=== PATIENT | female | born 1935 | race Caucasian/White ===

== ENCOUNTER → 2019-08-04 10:05 | Outpatient (BNVA) | payer MEDICARE, OTHER, SELFPAY | PROVIDERS: Family Provider Internal Medicine; PCP Internal Medicine; Referring Provider Internal Medicine Rheumatology; Visit Provider Internal Medicine Rheumatology | DX: M85.80 Other specified disorders of bone density and structure, unspecified site (principal); Z79.899 Other long term (current) drug therapy | CPT/HCPCS: 36415; 80053; 85025 ==

== ENCOUNTER → 2019-08-04 10:51 | Outpatient (BNVA) | payer MEDICARE, OTHER, SELFPAY | PROVIDERS: Family Provider Internal Medicine; PCP Internal Medicine; Referring Provider Internal Medicine Rheumatology | DX: M85.80 Other specified disorders of bone density and structure, unspecified site (principal); Z79.899 Other long term (current) drug therapy | CPT/HCPCS: 85025 ==

== ENCOUNTER → 2019-12-18 14:51 | Outpatient (BNVA) | payer MEDICARE, OTHER, SELFPAY | PROVIDERS: Family Provider Internal Medicine; PCP Internal Medicine; Visit Provider Internal Medicine | DX: M94.8X9 Other specified disorders of cartilage, unspecified sites (principal); M81.0 Age-related osteoporosis without current pathological fracture | CPT/HCPCS: 99213 ==

== ENCOUNTER 2020-01-08 13:50 | Outpatient (CLI) | payer MEDICARE, OTHER, SELFPAY ==
--- NOTE | 2020-01-08 14:45 | XR_ITS ---
WS: [id number] SCREENING DEXA SCAN [employer] CLINICAL INFORMATION: osteoporosis COMPARISON: FINDINGS: Left femoral neck bone mineral density measures 0.879 g/cm2. This corresponds to a T score of -1.0 an d Z score of 0.7. Right femoral neck bone mineral density measures 0.850 g/cm2. This corresponds to a T score -1.3of an d Z score of 0.5. Mean femoral neck bone mineral density measures 0.864 g/cm2. This corresponds to a T score of -1.1 an d Z score of 0.6. Left forearm bone mineral density 0.65 with a T score of -2.5 and Z score of 0.6 XR/XR DEXA axial skeleton* [id number] IMPRESSION: Osteoporosis in the left forearm. Osteopenia in the femoral necks. Patient's FRAX calculated 10 year probability for major osteoporotic fracture i s 18.8 % and osteoporotic hip fracture is 4.5%.
--- NOTE | 2020-01-08 15:15 | XRR_ITS ---
PROCEDURE INFORMATION: Exam: XR Chest, 2 Views Exam date and time: 01/08/2020 1:55 PM Age: 84 years old Clinical indication: Shortness of breath; Additional info: SOB TECHNIQUE: Imaging protocol: XR of the chest Views: 2 views. COMPARISON: CR Chest 1 [place] [id number] 01/25/2013 7:01 PM FINDINGS: Lungs: Unremarkable. No consolidation. Pleural space: Unremarkable. No pleural effusion. No pneumothorax. Heart/Mediastinum: Unremarkable. No cardiomegaly. Bones/joints: Dorsal spine osteopenia. Mid dorsal compression fracture is seen. XR/XR chest 2V* [id number] IMPRESSION: No acute findings. Dorsal spine osteopenia and compression fracture.
== END 2020-01-08 13:51 | disposition home or self-care (01) ==
LOC: RADWPI 13:54
PROVIDERS: Family Provider Internal Medicine; PCP Internal Medicine; Visit Provider Internal Medicine
DX: M81.0 Age-related osteoporosis without current pathological fracture (principal); R06.02 Shortness of breath; M85.88 Other specified disorders of bone density and structure, other site; M48.50XA Collapsed vertebra, not elsewhere classified, site unspecified, initial encounter for fracture
CPT/HCPCS: 71046; 77080

== ENCOUNTER → 2020-03-02 13:10 | Outpatient (BNVA) | payer MEDICARE, OTHER, SELFPAY | PROVIDERS: Family Provider Internal Medicine; PCP Internal Medicine; Visit Provider Internal Medicine | DX: M94.8X9 Other specified disorders of cartilage, unspecified sites (principal); M06.9 Rheumatoid arthritis, unspecified; M81.0 Age-related osteoporosis without current pathological fracture | CPT/HCPCS: 36415; 80053; 85025; 85651; 99213 ==

== ENCOUNTER → 2020-07-19 14:01 | Outpatient (BNVA) | payer MEDICARE, OTHER, SELFPAY | PROVIDERS: PCP Family Medicine; Visit Provider Internal Medicine | DX: M94.1 Relapsing polychondritis (principal); Z79.899 Other long term (current) drug therapy; Z11.1 Encounter for screening for respiratory tuberculosis; Z11.59 Encounter for screening for other viral diseases | CPT/HCPCS: 36415; 80053; 85025; 85651; 86140; 86480; 86704; 86803; 87340; 99214 ==

== ENCOUNTER 2020-08-05 09:40 | Outpatient (CLI) | payer MEDICARE, SELFPAY ==
--- NOTE | 2020-08-05 10:15 | USCV_ITS ---
Vandana Christie Age: 85 Gender: F : 1935 Exam Date: 08/05/2020 10:04 Ordering Phys: Sher Cooper MD Technologist: Nasrin Mazariegos [place]am Location: [facility] [place] [facility] [place] Indication: RELAPSING POLYCHONDRITIS BP: 141 / 62 HR: 64 Rhythm: Sinus Technical Quality: Adequate MEASUREMENTS (Male / Female) Normal Values 2D ECHO LV Diastolic Diameter PLAX 3.3 cm 4.2 - 5.9 / 3.9 - 5.3 cm LV Systolic Diameter PLAX 2.9 cm LV Chamber Size 2.9 cm IVS Diastolic Thickness 1.2 cm 0.6 - 1.0 / 0.6 - 0.9 cm IVS Systolic Thickness 1.5 cm LVPW Diastolic Thickness 2.3 cm 0.6 - 1.0 / 0.6 - 0.9 cm LVPW Systolic Thickness 2.7 cm RV Chamber Size 3.7 cm LVOT Diameter 2.0 cm LV Ejection Fraction 2D Teich 26.2 % LV Ejection Fraction MOD 2C 55.6 % LV Ejection Fraction 2C AL 57.7 % LA Diameter 3.5 cm LA Width 3.6 cm LA Height 4.5 cm RA Width 3.4 cm RA Height 4.0 cm Aorta at Sinotubular Diameter 2.7 cm M-MODE LV Diastolic Diameter MM 4.8 cm 4.2 - 5.9 / 3.9 - 5.3 cm LV Systolic Diameter MM 3.5 cm LV Ejection Fraction MM Teich 53.6 % IVS Diastolic Thickness MM 1.3 cm 0.6 - 1.0 / 0.6 - 0.9 cm IVS Systolic Thickness MM 1.6 cm LVPW Diastolic Thickness MM 1.2 cm 0.6 - 1.0 / 0.6 - 0.9 cm LVPW Systolic Thickness MM 1.4 cm Aortic Annulus Diameter 3.0 cm LA Ao Ratio MM 1.3 MV E Point Septal Separation 1.1 cm DOPPLER AV Peak Velocity 179.0 cm/s LVOT Peak Velocity 122.0 cm/s AV Area Cont Eq vti 2.6 cm squared AV Area Cont Eq pk 2.2 cm squared MV Area PHT 3.6 cm squared Mitral E to A Ratio 0.7 MV E' Velocity 34.0 cm/s Mitral E to MV E' Ratio 5.7 Mitral E to LV E' Lateral Ratio 6.5 Mitral E to LV E' Septal Ratio 5.0 TR Peak Velocity 267.0 cm/s TR Peak Gradient 28.5 mmHg TV Peak E Velocity 52.0 cm/s Right Atrial Pressure 3.0 mmHg Pulmonary Artery Systolic Pressu 31.5 mmHg PV Peak Velocity 70.0 cm/s RV Acceleration Time 0.1 s RV Ejection Time 0.4 s RV AcT/ET 0.4 FINDINGS Left Ventricle Normal left ventricular size. LV systolic function with EF of 55 to 60%. No regional wall motion abnormalities are seen. Grade 1 diastolic dysfunction is seen. Right Ventricle The right ventricle is normal in size and function. Right Atrium The right atrium is normal in size. Left Atrium The left atrium is normal in size. Mitral Valve Mild mitral annular calcification is seen. No significant mitral stenosis. There is mild mitral regurgitation. Aortic Valve Aortic valve is thickened. No significant aortic stenosis is seen.. There is no aortic regurgitation. Tricuspid Valve Structurally normal tricuspid valve without significant stenosis. There is trace tricuspid regurgitation. RVSP is 35 to 40 mmHg. This is consistent with mild pulmonary hypertension. Pulmonic Valve Grossly normal. Pericardium Normal pericardium without effusion. Aorta Normal ascending aorta dimension. CONCLUSIONS LV systolic function is normal with EF of 55 to 60%. Grade 1 diastolic dysfunction is seen. Mild pulmonary hypertension is present. Mild mitral regurgitation and trace tricuspid regurgitation is seen. Prior echocardiogram from 05/21/2014, no significant changes are seen. Edil De La Cruz MD (Electronically Signed) Final Date: 13 August 2020 12:14 S
== END 2020-08-05 09:41 | disposition home or self-care (01) ==
LOC: US 09:40
PROVIDERS: PCP Family Medicine; Visit Provider Internal Medicine
DX: M94.1 Relapsing polychondritis (principal); I27.20 Pulmonary hypertension, unspecified; I08.1 Rheumatic disorders of both mitral and tricuspid valves
CPT/HCPCS: 93306

== ENCOUNTER → 2021-01-06 09:55 | Outpatient (BNVA) | payer MEDICARE, SELFPAY | PROVIDERS: PCP Internal Medicine; Visit Provider Internal Medicine | DX: M94.1 Relapsing polychondritis (principal); Z79.899 Other long term (current) drug therapy | CPT/HCPCS: 36415; 81001; 82728; 83540; 85651; 86140; 86160; 99214 ==

== ENCOUNTER → 2021-03-10 10:12 | Outpatient (BNVA) | payer MEDICARE, SELFPAY | PROVIDERS: PCP Internal Medicine; Visit Provider Internal Medicine | DX: M94.1 Relapsing polychondritis (principal); Z79.899 Other long term (current) drug therapy | CPT/HCPCS: 99213; 99214 ==

== ENCOUNTER → 2021-06-14 10:17 | Outpatient (BNVA) | payer MEDICARE, SELFPAY | PROVIDERS: PCP Internal Medicine; Visit Provider Internal Medicine | DX: M94.1 Relapsing polychondritis (principal); Z79.899 Other long term (current) drug therapy | CPT/HCPCS: 99213 ==

== ENCOUNTER → 2021-09-23 09:01 | Outpatient (BNVA) | payer MEDICARE, SELFPAY | PROVIDERS: PCP Internal Medicine; Visit Provider Internal Medicine | DX: M94.1 Relapsing polychondritis (principal); Z79.899 Other long term (current) drug therapy | CPT/HCPCS: 99213; 99214 ==

== ENCOUNTER → 2021-12-27 14:25 | Outpatient (BNVA) | payer MEDICARE, SELFPAY | PROVIDERS: PCP Internal Medicine; Visit Provider Internal Medicine | DX: M94.1 Relapsing polychondritis (principal); M81.0 Age-related osteoporosis without current pathological fracture; M06.9 Rheumatoid arthritis, unspecified | CPT/HCPCS: 99213; 99214 ==

== ENCOUNTER → 2022-03-22 08:57 | Outpatient (BNVA) | payer MEDICARE, SELFPAY | PROVIDERS: PCP Internal Medicine; Visit Provider Internal Medicine | DX: M94.1 Relapsing polychondritis (principal); M81.0 Age-related osteoporosis without current pathological fracture; M06.9 Rheumatoid arthritis, unspecified; Z79.899 Other long term (current) drug therapy | CPT/HCPCS: 99213; 99214 ==

== ENCOUNTER 2022-03-31 14:31 | Outpatient (CLI) | payer MEDICARE, SELFPAY ==
--- NOTE | 2022-03-31 14:30 | XR_ITS ---
WS: [id number] DEXA (DUAL ENERGY X-RAY ABSORPTIOMETRY) Bone mineral density was performed using a Symwave machine. HISTORY: M81.0 - Age-related osteoporosis without current fracture. COMPARISON: 01/08/2020 Left forearm BMD: 0.605 g/cm2. T score: -3.1 Z score: 0.2 Left: 0.871 g/cm2. T score: -1.1 Z score: 0.8 Right: 0.828 g/cm2. T score: -1.4 Z score: 0.5 10 year probability of a major osteoporotic fracture is 17.4%. Compared to the prior study from 01/08/2020. LEFT forearm bone mineral density has decreased by 7.8%. Bilateral hips bone mineral density has decreased by 1.6%. XR/XR DEXA axial skeleton* [id number] IMPRESSION: OSTEOPOROSIS based upon the WHO classification for females. Significant decrease in bone mineral density within the forearm since the prior study. No significant change within the hips.
== END 2022-03-31 14:32 | disposition home or self-care (01) ==
PROVIDERS: PCP Internal Medicine; Visit Provider Internal Medicine
DX: M81.0 Age-related osteoporosis without current pathological fracture (principal); M94.1 Relapsing polychondritis
CPT/HCPCS: 77080

== ENCOUNTER → 2022-11-08 10:54 | Outpatient (BNVA) | payer MEDICARE, SELFPAY | PROVIDERS: PCP Internal Medicine; Visit Provider Internal Medicine | DX: M81.0 Age-related osteoporosis without current pathological fracture (principal); M06.9 Rheumatoid arthritis, unspecified; M94.1 Relapsing polychondritis | CPT/HCPCS: 99214 ==

== ENCOUNTER 2023-01-15 07:58 | Oncology outpatient (recurring) (ONCR) | payer MEDICARE, SELFPAY ==
[2023-01-15 08:30] VITALS: BP 137/84; PULSE 88; RESP 16; TEMP 35.8; O2SAT 94
[2023-01-15 09:17] LABS: Albumin Level 3.9 g/dL (3.5-5.2); Calcium 9.4 mg/dL (8.5-10.5)
[2023-01-15] MEDS: denosumab 60 mg SDV SUBCUT (09:33)
[2023-01-19 12:55] LABS: Vit D 1,25 (Oh)2, Total 40 pg/mL (18-72); Vit D2 1,25 (Oh)2 <8 pg/mL; Vit D3 1,25 (Oh)2 40 pg/mL
== END 2023-01-29 23:59 | disposition home or self-care (01) ==
PROVIDERS: PCP Internal Medicine; Visit Provider Internal Medicine
DX: M81.0 Age-related osteoporosis without current pathological fracture (principal)
CPT/HCPCS: 36415; 82040; 82310; 82565; 82652; 96372; J0897

== ENCOUNTER → 2023-05-16 15:23 | Outpatient (BNVA) | payer MEDICARE, SELFPAY | PROVIDERS: PCP Internal Medicine; Visit Provider Internal Medicine | DX: M81.0 Age-related osteoporosis without current pathological fracture (principal); M06.9 Rheumatoid arthritis, unspecified; M94.1 Relapsing polychondritis | CPT/HCPCS: 36415; 80053; 85025; 85651; 86140; 99213 ==

== ENCOUNTER 2023-06-23 14:05 | Emergency (ER) | payer MEDICARE, SELFPAY ==
[2023-06-23 14:07] VITALS: PULSE 82; RESP 16; O2SAT 91; BMI 30.9
--- NOTE | 2023-06-23 14:23 | XRR_ITS ---
PROCEDURE INFORMATION: Exam: XR Right Hip Exam date and time: 06/23/2023 2:32 PM Age: 88 years old Clinical indication: Injury or trauma; Fall; Blunt trauma (contusions or hematomas); Right; Hip; Additional info: Pain, fall yest per nh staff, PT denies. Pain reported (chronic vs TECHNIQUE: Imaging protocol: Radiologic exam of the right hip. Views: 1 view hip with pelvis when performed. COMPARISON: No relevant prior studies available. FINDINGS: Bones/joints: There are marginal osteophyte formations and subchondral cystic changes across the right hip joint. Mild to moderate narrowing of the right hip joint space. Degenerative changes are present across the visualized pubic symphysis and right sacroiliac joint. Soft tissues: Unremarkable. XR/XR hip RT 2-3V wo/w pel* [id number] IMPRESSION: No acute findings. There are degenerative changes across the right hip joint as described above.
--- NOTE | 2023-06-23 14:23 | W.ED.EXTPRO ---
HPI - Extremity Problem General: Chief complaint: Extremity Injury, Lower Stated complaint: HIP PAIN Time Seen by Provider: 06/23/23 14:08 Source: patient and EMS Mode of arrival: EMS Limitations: no limitations History of Present Illness: Patient presents emergency department today brought from the nursing facility for reported complaints of right hip pain. EMS states that they were called by staff as the patient had a unwitnessed fall yesterday and was complaining of right hip pain. However, when patient was asked, she indicated she did not fall yesterday and always has right hip pain due to arthritis. Patient states she typically is up and ambulatory with her walker and is able to get to and from the dining facility where she resides without difficulty. She states she does not know why EMS was called or why she was here. She denies any pain currently. EMS states patient has a history of dementia. Review of Systems General: Reports: 10 or more systems reviewed and unremarkable except in HPI and below PFSH ED PFSH: Medical History Cognitive impairment Hypercholesterolemia Rheumatoid arthritis Osteoporosis Polychondritis Social History Smoking and tobacco/nicotine status: never used tobacco/nicotine Second hand smoke exposure: No Alcohol intake: never Substance/Drug Use: never Adopted: No Caregiver/support person: Yes Lives independently: No Housing: Assisted Living Facility Physical Exam Const: COMMON NORMALS: no acute distress, patient oriented x3 and alert HENMT: COMMON NORMALS: normocephalic, atraumatic and hearing grossly normal bilaterally HEAD & SCALP: normocephalic and atraumatic Eye: COMMON NORMALS: Equal, round and reactive pupils present, EOMs intact bilaterally and conjunctivae normal CONJUNCTIVA: Yes conjunctivae normal PUPIL: Yes Equal, round and reactive pupils present Neck/C-Spine: COMMON NORMALS: full ROM and no JVD Lymph: LYMPHATIC: no lymphadenopathy noted Resp: COMMON NORMALS: normal respiratory effort, No retractions and No use of accessory muscles Cardio: COMMON NORMALS: no JVD and regular rate RATE: regular rate Extremity: NARRATIVE EXTREMITY EXAM: Patient shows range of motion of the right hip with ability to fully flex and extend. Patient is moving her lower extremities independently as well as her upper extremities. Neuro: COMMON NORMALS: patient oriented x3 SENSORIUM/ORIENTATION: Yes alert Psych: COMMON NORMALS: mental status grossly normal, Normal thought process present, cooperative and normal affect THOUGHT PROCESS: Normal thought process present Skin: COMMON NORMALS: no rashes or lesions noted and turgor normal GENERAL SKIN EXAM: no rashes or lesions noted and turgor normal Course Vital Signs: Vital signs: Vital Signs Pulse Rate 76 06/23/23 14:33 Respiratory Rate 17 06/23/23 14:33 Blood Pressure 160/98 06/23/23 14:33 Pulse Oximetry 93 06/23/23 14:33 Oxygen Delivery Me thod Room Air 06/23/23 14:07 MDM - Extremity (Nontraumatic) Medical Decision Making X-rays negative for any acute abnormalities or fractures to the hip or pelvis at this time. Patient is denying any pain and the nursing staff did get the patient up to perform weightbearing and ambulation which she did perform with minimal assistance. Patient's daughter came to the emergency department and stated she was not sure if the patient had had a fall or not. She states she was told by staff that her mother had fallen but, her mother and so she did not. Patient again indicates no pain and wishes to discharge. Patient's daughter requests to transport the patient back to the nursing facility by private vehicle. As there is no signs of any injury, patient is free to discharged by POV. Differential Diagnosis Unlikely herpes zoster, gout, cellulitis, superficial thrombophlebitis, lower extremity edema or deep vein thrombosis of lower extremity Lab Data Radiology Impressions Hip/Pelvis X-Ray 06/23/23 14:23 IMPRESSION: No acute findings. There are degenerative changes across the right hip joint as described above. All radiology interpretation(s) finalized by discharge Discharge Plan Discharge Patient Disposition: Home Clinical Impression: Osteoarthritis of right hip Condition: Stable Prescriptions: No Action magnesium 250 mg tablet 500 mg PO DAILY acetaminophen [Tylenol] 325 mg tablet 325 mg PO QID PRN (Reason: Pain) bisacodyl 10 mg suppository 10 mg NC DAILY PRN (Reason: Constipation) sodium phosphates 19-7 gram/118 mL enema 118 ml NC DAILY PRN (Reason: Constipation) magnesium hydroxide [Milk of Magnesia] 400 mg/5 mL suspension 5 ml PO DAILY PRN (Reason: Constipation) Culturelle 10 billion cell capsule 1 cap PO DAILY PRN (Reason: Constipation) Artificial Tears(glycerin-peg) 1-0.3 % drops 2 drop ophthalmic (eye) DAILY PRN (Reason: Dry Eye(S)) (DME) cpap supplies See Rx Instructions .Route .MEDSUPPLY Qty: 1 0RF Rx Instructions: As directed cyanocobalamin (vitamin B-12) 1,000 mcg/mL solution 1,000 mcg IM .monthly Qty: 1 6RF celecoxib 200 mg capsule 200 mg PO DAILY Qty: 90 3RF pantoprazole 40 mg tablet,delayed release (DR/EC) 40 mg PO DAILY Qty: 30 2RF folic acid 1 mg tablet 2 mg PO DAILY Qty: 90 3RF gabapentin 600 mg tablet 300 mg PO TID Zoloft 50 mg Tablet 50 mg PO QPM Vitamin D3 25 mcg (1,000 unit) Capsule 25 mcg PO DAILY methotrexate sodium 2.5 mg tablet 10 mg PO .weekly Discharge Orders: Discharge ED (Routine); Ordered 06/23/23 Ordered By: Lynda Locke Referrals: Yusef Red DO [Primary Care Provider] - Discharge Diet: Usual diet Discharge Activity: Increase activity as tolerated Activity Restrictions/Additional Instructions: X-ray today reveals no acute changes to the right hip concerning for injury. There are still findings of osteoarthritis. As you were able to stand and ambulate in your room without pain and there is no signs of acute injury to the hip, pelvis, or femur, we will like to discharge home for continued monitoring. Take at home medications as prescribed. Coding Level of Care Code ED Farrowing Worker for Etta Rodriguez
[2023-06-23 14:33] VITALS: BP 160/98; PULSE 76; RESP 17; O2SAT 93
== END 2023-06-23 18:06 | disposition home or self-care (01) ==
PROVIDERS: Emergency Provider Physician Assistant; PCP Internal Medicine
DX: M16.11 Unilateral primary osteoarthritis, right hip (principal)
CPT/HCPCS: 73502; 99283

== ENCOUNTER 2023-07-31 09:01 | Oncology outpatient (recurring) (ONCR) | payer MEDICARE, SELFPAY ==
[2023-07-31 09:22] VITALS: BP 127/86; PULSE 94; RESP 18; TEMP 35.9; O2SAT 98
[2023-07-31] MEDS: denosumab 60 mg SDV SUBCUT (09:27)
== END 2023-08-01 23:59 | disposition home or self-care (01) ==
LOC: ONCMED 09:02
PROVIDERS: PCP Internal Medicine; Visit Provider Internal Medicine
DX: M81.0 Age-related osteoporosis without current pathological fracture (principal)
CPT/HCPCS: 96372; J0897

== ENCOUNTER 2024-06-07 21:13 | Emergency (ER) | payer MEDICARE, SELFPAY ==
--- NOTE | 2024-06-07 21:18 | XRR_ITS ---
PROCEDURE INFORMATION: Exam: XR Chest Exam date and time: 06/07/2024 9:38 PM Age: 88 years old Clinical indication: Chest pressure; Patient HX: Chest pain; Additional info: Cp TECHNIQUE: Imaging protocol: Radiologic exam of the chest. Views: 1 view. COMPARISON: CR XR chest 2V* [id number] 01/08/2020 2:15 PM FINDINGS: Lungs: Nonspecific prominence of the pulmonary interstitium. Left basilar atelectasis. No lobar consolidation. Pleural spaces: Unremarkable. No pleural effusion. No pneumothorax. Heart/Mediastinum: Cardiomegaly. Bones/joints: Unremarkable. XR/XR chest 1V portable [id number] IMPRESSION: As above.
[2024-06-07 21:21] VITALS: BP 149/84; PULSE 76; RESP 14; TEMP 36.6; O2SAT 92; BMI 31.6
--- NOTE | 2024-06-07 21:35 | ED_ITS ---
HPI - Chest Pain 2 General: Chief Complaint: Chest Pain Stated Complaint: CP Time Seen by Provider: 06/07/24 21:15 History of Present Illness: 88-year-old female with a history of dem entia. She presents from long term environment .. She presents with sharp chest pain that is now resolved. She denies shortness of breath or cough. She is a poor historian. No fever. She does not have any known history of coronary disease. Related Data Home Medications Medication Instructions Recorded Confirmed propylene glycol 1 %-glycerin 0.3 2 drop ophthalmic (eye) DAILY PRN 03/02/20 06/23/23 % eye drops (Artificial Tears Dry Eye(S) (glycerin-peg)) Lactobacillus rhamnosus GG 10 1 cap PO DAILY PRN Constipation 07/19/20 06/23/23 billion cell capsule (Culturelle) acetaminophen 325 mg tablet 325 mg PO QID PRN Pain 07/19/20 06/23/23 (Tylenol) bisacodyl 10 mg rectal suppository 10 mg MO DAILY PRN Constipation 07/19/20 06/23/23 magnesium 250 mg tablet 500 mg PO DAILY 07/19/20 06/23/23 magnesium hydroxide 400 mg/5 mL 5 ml PO DAILY PRN Constipation 07/19/20 06/23/23 oral suspension (Milk of Magnesia) sodium phosphates 19 gram-7 118 ml MO DAILY PRN Constipation 07/19/20 06/23/23 gram/118 mL enema cholecalciferol (vitamin D3) 25 25 mcg PO DAILY 06/23/23 06/23/23 mcg (1,000 unit) capsule (Vitamin D3) gabapentin 600 mg tablet 300 mg PO TID 06/23/23 06/23/23 methotrexate sodium 2.5 mg tablet 10 mg PO .weekly 06/23/23 06/23/23 sertraline 50 mg tablet (Zoloft) 50 mg PO QPM 06/23/23 06/23/23 Previous Rx's Medication Instructions Recorded cpap supplies #1 ea 07/15/20 cyanocobalamin (vitamin B-12) 1,000 mcg IM .monthly #1 mL 01/17/21 1,000 mcg/mL injection solution celecoxib 200 mg capsule 200 mg PO DAILY #90 caps 08/16/21 pantoprazole 40 mg tablet,delayed 40 mg PO DAILY #30 tabs 01/10/23 release folic acid 1 mg tablet 2 mg (2 x 1 mg) PO DAILY #90 tabs 02/20/23 Allergies Allergy/AdvReac Type Severity Reaction Status Date / Time No Known Allergies Allergy Verified 06/23/23 15:24 PFSH ED 2 PFSH: Medical History Cognitive impairment Hypercholesterolemia Rheumatoid arthritis Osteoporosis Polychondritis Social History Smoking and tobacco/nicotine status: never used tobacco/nicotine Second hand smoke exposure: No Alcohol intake: never Substance/Drug Use: never Adopted: No Caregiver/support person: Yes Lives independently: No Housing: Assisted Living Facility Physical Exam 2 Const: COMMON NORMALS: no acute distress GENERAL APPEARANCE: cooperative; not ill appearing and not frail appearing HENMT: COMMON NORMALS: normocephalic, atraumatic and Normal external nose present HEAD & SCALP: normocephalic and atraumatic FACE & SINUS: normal facial exam and face symmetric NOSE: Normal external nose present Eye: COMMON NORMALS: Equal, round and reactive pupils present and EOMs intact bilaterally PUPIL: Yes Equal, round and reactive pupils present Neck/C-Spine: GENERAL: Yes trachea midline Chest: CHEST: Yes Symmetrical chest wall rise Resp: COMMON NORMALS: normal respiratory effort, No retractions, No use of accessory muscles and clear to auscultation bilaterally AUSCULTATION: clear to auscultation bilaterally Cardio: COMMON NORMALS: regular rate and regular rhythm RATE: regular rate RHYTHM: regular rhythm GI: COMMON NORMALS: Normal to inspection, nondistended, normoactive bowel sounds present Extremity: GENERAL: Yes edema (1+) Neuro: BEAU COMA SCALE: document GCS findings [place] coma scale eye opening: Spontaneous Beau coma scale verbal response: Orientated [place] coma scale motor response: Obey commands Beau coma scale total score: 15 S ENSORY EXAM: Yes extremities (intact) Psych: COMMON NORMALS: speech normal SPEECH: Yes normal speech Course 2 Vital Signs: Vital signs: Vital Signs Temperature 97.8 F 06/07/24 21:21 Pulse Rate 76 06/08/24 01:17 Respiratory Rate 16 06/08/24 01:17 Blood Pressure 109/59 06/08/24 01:17 Pulse Oximetry 97 06/08/24 01:17 Oxygen Delivery Me thod Room Air 06/08/24 00:34 MDM - Chest Pain Medical Decision Making EKG shows a left bundle branch block. No acute changes. CBC is normal. Creatinine is 1.1. Chest x-ray is nonacute. Delta troponin is -3 at 2 hours. BNP is mildly elevated. Her chest pain is resolved. Her blood pressure is normalized. She is on room air and is not hypoxic. She wishes to go home. She will be discharged. Return for return of chest pain or other symptoms. Lab Data 06/07/24 21:33 06/07/24 21:33 Radiology Impressions Chest X-Ray 06/07/24 21:18 IMPRESSION: As above. Laboratory Results WBC 6.48 10^3/uL (3.29-11.43) 06/07/24 21: RBC 4.13 10^6/uL (3.85-5.65) 06/07/24 21:33 Hgb 12.60 g/dL (11.27-16.99) 06/07/24 21:33 Hct 38.5 % (36-47) 06/07/24 21:33 MCV 93.2 fl (85-98) 06/07/24 21:33 MCH 30.5 pg (27-33) 06/07/24 21: MCHC 32.7 g/dL (30-55) 06/07/24 21:33 RDW 14.6 % (12.1-15.1) 06/07/24 21:33 Plt Count 172 10^3/cmm (157-399) 06/07/24 21: MPV 11.8 fL (7.4-10.4) H 06/07/24 21:33 Neut % (Auto) 59.8 % 06/07/24 21:33 Lymph % (Auto) 26.9 % 06/07/24 21:33 [place] % (Auto) 9.6 % 06/07/24 21:33 Eos % (Auto) 2.9 % 06/07/24 21:33 Baso % (Auto) 0.5 % 06/07/24 21:33 Neut # (Auto) 3.88 10^3/uL (1.8-7.7) 06/07/24 21:33 Lymph # (Auto) 1.7 10^3/uL (0.8-4.8) 06/07/24 21:33 [place] # (Auto) 0.6 10^3/uL (0.2-0.9) 06/07/24 21:33 Eos # (Auto) 0.2 10^3/uL (0.0-0.8) 06/07/24 21:33 Baso # (Auto) 0.0 10^3/uL (0.0-0.1) 06/07/24 21:33 Nucleated RBC % (auto) 0 % 06/07/24 21:33 Nucleated RBCs # 0.0 /100WBC 06/07/24 21:33 Sodium 136 mmol/L (136-145) 06/07/24 21:33 Potassium 4.1 mmol/L (3.5-5.1) 06/07/24 21:33 Chloride 101 mmol/L (98-107) 06/07/24 21:33 Carbon Dioxide 24 mmol/L (22-29) 06/07/24 21:33 Anion Gap 15.1 (5-19) 06/07/24 21:33 BUN 26 mg/dL (8-23) H 06/07/24 21:33 Creatinine 1.1 mg/dL (0.5-0.9) H 06/07/24 21:33 GFR Calculation Not Reportable 06/07/24 21:33 Glucose 101 mg/dL (65-115) 06/07/24 21:33 Calculated Osmolality 287 mOsm/kg (285-295) 06/07/24 21:33 Calcium 10.3 mg/dL (8.5-10.5) 06/07/24 21:33 Total Bilirubin 0.3 mg/dL (0.15-1.2) 06/07/24 21:33 AST 21 U/L (0-32) 06/07/24 21:33 ALT 12 U/L (0-33) 06/07/24 21:33 Alkaline Phosphatase 69 U/L (35-105) 06/07/24 21:33 Troponin T Baseline 26 ng/L (0-10) H 06/07/24 21:33 Troponin T 120 Minute 23.14 ng/L (0-10) H 06/07/24 23:18 Delta Troponin T -2.86 ABS# (0-10) L 06/07/24 23:18 NT-Pro-B Natriuret Pep 2207 pg/mL (0-450) H 06/07/24 21:33 Total Protein 6.8 g/dL (6.6-8.7) 06/07/24 21:33 Albumin 4.3 g/dL (3.5-5.2) 06/07/24 21:33 Globulin 2.5 g/dL (1.3-4.6) 06/07/24 21:33 Urine Color Yellow (Yellow) 06/07/24 23:10 Urine Appearance Clear (CLEAR) 06/07/24 23:10 Urine pH 5.5 (5-7) 06/07/24 23:10 Ur Specific [place] 1.014 (1.005-1.030) 06/07/24 23:10 Urine Protein Negative (Negative) 06/07/24 23:10 Urine Glucose (UA) Negative (Normal) 06/07/24 23:10 Urine Ketones Trace (Negative) 06/07/24 23:10 Urine Blood Negative (Negative) 06/07/24 23:10 Urine Nitrate Negative (Negative) 06/07/24 23:10 Urine Bilirubin Negative (Negative) 06/07/24 23:10 Urine Urobilinogen 0.2 mg/dL (Negative) 06/07/24 23:10 Ur Leukocyte Esterase 2+ (Negative) A 06/07/24 23:10 Urine RBC 0-4 /hpf (0-2) H 06/07/24 23:10 Urine WBC 5-10 /hpf (0-5) H 06/07/24 23:10 Ur Squamous Epith Cells 0-4 /hpf (0-5) H 06/07/24 23:10 Amorphous Sediment Not Reportable 06/07/24 23:10 Urine Bacteria Trace /hpf (NONE) 06/07/24 23:10 All radiology interpretation(s) finalized by discharge Discharge Plan Discharge Patient Disposition: Home Clinical Impression: Chest pain Condition: Stable Prescriptions: No Action magnesium 250 mg tablet 500 mg PO DAILY acetaminophen [Tylenol] 325 mg tablet 325 mg PO QID PRN (Reason: Pain) bisacodyl 10 mg suppository 10 mg MO DAILY PRN (Reason: Constipation) sodium phosphates 19-7 gram/118 mL enema 118 ml MO DAILY PRN (Reason: Constipation) magnesium hydroxide [Milk of Magnesia] 400 mg/5 mL suspension 5 ml PO DAILY PRN (Reason: Constipation) Culturelle 10 billion cell capsule 1 cap PO DAILY PRN (Reason: Constipation) Artificial Tears(glycerin-peg) 1-0.3 % drops 2 drop ophthalmic (eye) DAILY PRN (Reason: Dry Eye(S)) (DME) cpap supplies See Rx Instructions .Route .MEDSUPPLY Qty: 1 0RF Rx Instructions: As directed cyanocobalamin (vitamin B-12) 1,000 mcg/mL solution 1,000 mcg IM .monthly Qty: 1 6RF celecoxib 200 mg capsule 200 mg PO DAILY Qty: 90 3RF pantoprazole 40 mg tablet,delayed release (DR/EC) 40 mg PO DAILY Qty: 30 2RF folic acid 1 mg tablet 2 mg PO DAILY Qty: 90 3RF gabapentin 600 mg tablet 300 mg PO TID Zoloft 50 mg Tablet 50 mg PO QPM Vitamin D3 25 mcg (1,000 unit) Capsule 25 mcg PO DAILY methotrexate sodium 2.5 mg tablet 10 mg PO .weekly Discharge Orders: Discharge ED (Routine); Ordered 06/08/24 Ordered By: Malik Flores Referrals: Yusef Red DO [Primary Care Provider] - 1-3 days Patient Instructions: Chest Pain (ED), Opioid Safety, Pain Management Activity Restrictions/Additional Instructions: Return for repeated episodes of chest pain, shortness of breath, vomiting, fever, other concerning symptoms. See your doctor next week Coding Level of Care Code ED Smoke Eater for Etta Rodriguez
--- NOTE | 2024-06-07 21:38 | ECG_ITS ---
[facility] Date: 2024-06-07 Pat Name: Vandana Christie Department: Room: Gender: Female Acid Dumper: : 1935 Requested By: Malik Henry Order Number: [id number] Reading MD: DANISH DELGADILLO Measurements Intervals [place] Rate: 74 P: 43 DE: 214 QRS: -11 QRSD: 160 T: 115 QT: 430 QTc: 477 Interpretive Statements SINUS RHYTHM WITH FIRST DEGREE AV BLOCK WITH OCCASIONAL SUPRAVENTRICULAR PREMATURE COMPLEXES LEFT BUNDLE BRANCH BLOCK [120+ ms QRS DURATION, 80+ ms Q/S IN V1/V2, 85+ ms R IN I/aVL/V5/V6] No previous ECG available for comparison Electronically Signed On 06-09-2024 16:10:57 LABOR EXPEDITER by DANISH DELGADILLO [email or web address]
[2024-06-07 21:39] LABS: Basophils % 0.5 %; Eosinophils # 0.2 10^3/uL (0.0-0.8); Eosinophils % 2.9 %; Hematocrit 38.5 % (36-47); Lymphocytes # 1.7 10^3/uL (0.8-4.8); Lymphocytes % 26.9 %; Mean Corpuscular HGB Conc 32.7 g/dL (30-55); Mean Corpuscular Hemoglobin 30.5 pg (27-33); Mean Corpuscular Volume 93.2 fl (85-98); Mean Platelet Volume 11.8 fL (7.4-10.4); Monocytes # 0.6 10^3/uL (0.2-0.9); Monocytes % 9.6 %; Neutrophils # 3.88 10^3/uL (1.8-7.7); Neutrophils % 59.8 %; Nucleated Red Blood Cells % 0 %; Platelet Count 172 10^3/cmm (157-399); Red Blood Count 4.13 10^6/uL (3.85-5.65); Red Cell Distribution Width 14.6 % (12.1-15.1); White Blood Count 6.48 10^3/uL (3.29-11.43)
[2024-06-07 21:43] VITALS: BP 149/84; PULSE 77; RESP 14; O2SAT 97
[2024-06-07 22:10] LABS: Troponin(5th) Baseline 26 ng/L (0-10)
[2024-06-07 22:20] LABS: Alanine Aminotransferase 12 U/L (0-33); Albumin Level 4.3 g/dL (3.5-5.2); Alkaline Phosphatase 69 U/L (35-105); Anion Gap 15.1 (5-19); Aspartate Amino Transferase 21 U/L (0-32); Blood Urea Nitrogen 26 mg/dL (8-23); Calcium 10.3 mg/dL (8.5-10.5); Carbon Dioxide 24 mmol/L (22-29); Chloride 101 mmol/L (98-107); Creatinine Clr Calc Pharmacy 36.9474; Globulin 2.5 g/dL (1.3-4.6); Glucose 101 mg/dL (65-115); NT Pro B Type Natriuretic Pept 2207 pg/mL (0-450); Osmolality Calculated 287 mOsm/kg (285-295); Potassium 4.1 mmol/L (3.5-5.1); Sodium 136 mmol/L (136-145); Total Bilirubin 0.3 mg/dL (0.15-1.2); Total Protein 6.8 g/dL (6.6-8.7)
[2024-06-07 22:42] VITALS: BP 147/83; PULSE 77; RESP 21; O2SAT 96
[2024-06-07 23:21] LABS: Bilirubin Urine Negative (Negative); Blood Urine Negative (Negative); Glucose Urine UA Negative (Normal); Ketones Urine Trace (Negative); Leukocyte Esterase Urine 2+ (Negative); Nitrate Urine Negative (Negative); Protein Urine Negative (Negative); Specific Gravity, Urine 1.014 (1.005-1.030); Urine Appearance Clear (CLEAR); Urine Color Yellow (Yellow); Urobilinogen Urine 0.2 mg/dL (Negative); pH Urine 5.5 (5-7)
[2024-06-07 23:43] LABS: Troponin 5 2HR 23.14 ng/L (0-10)
[2024-06-07 23:47] LABS: Troponin 5 2HR Delta -2.86 ABS# (0-10)
[2024-06-07 23:48] LABS: Add Urine Microscopic? YES; Bacteria Urine TRACE /hpf; RBC Urine 0-4 /hpf (0-2); Squamous Epithelial Cell Urine 0-4 /hpf (0-5)
[2024-06-08 00:34] VITALS: BP 160/78; PULSE 85; RESP 22; O2SAT 95
[2024-06-08 01:17] VITALS: BP 109/59; PULSE 76; RESP 16; O2SAT 97
--- NOTE | 2024-06-08 01:23 | PC.NURSE ---
ATTEMPTED TO CALL REPORT TO ROSA AYALA TWICE, NO ANSWER.
== END 2024-06-08 01:24 | disposition home or self-care (01) ==
PROVIDERS: Emergency Provider Emergency Medicine; PCP Internal Medicine
DX: R07.9 Chest pain, unspecified (principal)
CPT/HCPCS: 36415; 71045; 80053; 81001; 83880; 84484; 85025; 93005; 99285

== ENCOUNTER 2024-12-24 01:46 | Inpatient (IN) | payer MEDICARE, SELFPAY ==
[2024-12-24] VITALS (18 sets, daily range): BP systolic 91–164; BP diastolic 46–89; PULSE 57–91; RESP 16–22; TEMP 36.1–37.3; O2SAT 91–99; BMI 26.6
--- NOTE | 2024-12-24 02:03 | XRR_ITS ---
PROCEDURE INFORMATION: Exam: XR Pelvis Exam date and time: 12/24/2024 2:18 AM Age: 89 years old Clinical indication: Injury or trauma; Fall; Blunt trauma (contusions or hematomas); Right; Other: Thigh TECHNIQUE: Imaging protocol: Radiologic exam of the pelvis. Views: 1 or 2 view. COMPARISON: CR XR hip RT 2-3V wo/w pel* [id number] 06/23/2023 2:32 PM FINDINGS: Bones/joints: There is diffuse osteopenia which somewhat limits bony assessment.There is mild degenerative arthropathy. No acute fracture or dislocation identified. L5-S1 fusion. Soft tissues: Unremarkable. XR/XR pelvis 1-2V* [id number] IMPRESSION: 1. No acute bony process is identified. 2. Post-operative change as described.
--- NOTE | 2024-12-24 02:03 | XRR_ITS ---
PROCEDURE INFORMATION: Exam: XR Right Femur Exam date and time: 12/24/2024 2:08 AM Age: 89 years old Clinical indication: Injury or trauma; Fall; Blunt trauma; Thigh or upper leg; Right; Additional info: Injury, suspect fracture TECHNIQUE: Imaging protocol: Radiologic exam of the right femur. Views: 2 views. COMPARISON: CR XR hip RT 2-3V wo/w pel* [id number] 06/23/2023 2:32 PM FINDINGS: Bones/joints: There is diffuse osteopenia which somewhat limits bony assessment. There is an acute spiral fracture involving the distal femur with mild distraction and angulation. Right knee arthroplasty noted. There is mild degenerative arthropathy. Fusion of the lumbosacral spine incompletely visualized. Soft tissues: Unremarkable. XR/XR femur RT min 2V* [id number] IMPRESSION: 1. Acute spiral fracture of the distal femur. 2. Post-operative change as described.
--- NOTE | 2024-12-24 02:03 | XRR_ITS ---
PROCEDURE INFORMATION: Exam: XR Chest Exam date and time: 12/24/2024 2:20 AM Age: 89 years old Clinical indication: Injury or trauma; Fall; Blunt trauma (contusions or hematomas) TECHNIQUE: Imaging protocol: Radiologic exam of the chest. Views: 1 view. COMPARISON: CR XR chest 1V portable [id number] 06/07/2024 9:38 PM FINDINGS: Lungs: Mild asymmetric opacity left base.The remaining lungs are clear. Mild diffuse interstitial prominence bilaterally, lower lobes greater than upper lobes, likely chronic. Pleural spaces: Unremarkable. No pleural effusion. No pneumothorax. Heart/Mediastinum: The heart size is unchanged. Bones/joints: There is diffuse osteopenia which somewhat limits bony assessment.There are degenerative changes of the bones. Stable chronic compression fractures. No acute displaced fracture identified. XR/XR chest 1V portable [id number] IMPRESSION: 1. Mild nonspecific opacity left base possibly atelectasis, aspiration or contusion. 2. Otherwise, no acute process identified.
--- NOTE | 2024-12-24 02:03 | CTR_ITS ---
PROCEDURE INFORMATION: Exam: CT Head Without Contrast Exam date and time: 12/24/2024 3:01 AM Age: 89 years old Clinical indication: Injury or trauma; Fall; Blunt trauma (contusions or hematomas) TECHNIQUE: Imaging protocol: Computed tomography of the head without contrast. Radiation optimization: All CT scans at this facility use at least one of these dose optimization techniques: automated exposure control; mA and/or kV adjustment per patient size (includes targeted exams where dose is matched to clinical indication); or iterative reconstruction. COMPARISON: No relevant prior studies available. RADIATION DOSE METRICS: Total DLP (mGy-cm): 1149 FINDINGS: Brain: There is moderate periventricular white matter disease, nonspecific, most likely representing microvascular disease, although other etiologies are not excluded. No acute process, mass, or bleed. Cerebral ventricles: No ventriculomegaly. Paranasal sinuses: Visualized sinuses are unremarkable. No fluid levels. Mastoid air cells: Visualized mastoid air cells are well aerated. Orbital cavities: There are bilateral lens implants. Bones: Unremarkable. No acute fracture. Soft tissues: Unremarkable. CT/CT head wo con* [id number] IMPRESSION: 1. No intracranial bleed or depressed calvarial fracture identified. 2. Diffuse age-related atrophy and small vessel ischemic change.
--- NOTE | 2024-12-24 02:05 | ECG_ITS ---
[facility] Date: 2024-12-24 Pat Name: Vandana Christie Department: Room: Gender: Female Machine Binding Folder: : 1935 Requested By: Angel Alejandro Order Number: [id number] Reyes MD: Edil De La Cruz M.D. Measurements Intervals [place]ver[place] Rate: 79 P: 56 NC: 218 QRS: -8 QRSD: 145 T: 124 QT: 418 QTc: 482 Interpretive Statements SINUS RHYTHM WITH FIRST DEGREE AV BLOCK LEFT BUNDLE BRANCH BLOCK [120+ ms QRS DURATION, 80+ ms Q/S IN V1/V2, 85+ ms R IN I/aVL/V5/V6] Compared to ECG 06/07/2024 21:38:06 No significant changes Electronically Signed On 01-01-2025 09:29:07 CDT by Edil De La Cruz M.D. [email or web address]
--- NOTE | 2024-12-24 02:07 | W.ED.FALL ---
HPI - Fall General: Chief Complaint: Fall Stated Complaint: fall Time Seen by Provider: 12/24/24 01:47 History of Present Illness: 89-year-old patient from group home by ground EMS with history of dementia and rheumatoid arthritis was found on the floor after an unwitnessed fall. The event occurred after care staff went to fill medications and returned to find the patient on the floor. Patient reports pain localized to the right thigh region. No clear recollection of the fall. No mention of head trauma or loss of consciousness. No complaints of pain in other areas. Patient is not on blood thinners. EMS reports no known prior hip repair. Patient appears to have had a right total knee replacement. No other acute symptoms reported. She is unable to provide history for herself. She is somewhat somnolent after receiving pain medication en route to the hospital. Related Data Home Medications ?Medication ?Instructions ?Recorded ?Confirmed propylene glycol 1 %-glycerin 0.3 2 drop ophthalmic (eye) DAILY PRN 03/02/20 06/23/23 % eye drops (Artificial Tears Dry Eye(S) (glycerin-peg)) Lactobacillus rhamnosus GG 10 1 cap PO DAILY PRN Constipation 07/19/20 06/23/23 billion cell capsule (Culturelle) acetaminophen 325 mg tablet 325 mg PO QID PRN Pain 07/19/20 06/23/23 (Tylenol) bisacodyl 10 mg rectal suppository 10 mg RI DAILY PRN Constipation 07/19/20 06/23/23 magnesium 250 mg tablet 500 mg PO DAILY 07/19/20 06/23/23 magnesium hydroxide 400 mg/5 mL 5 ml PO DAILY PRN Constipation 07/19/20 06/23/23 oral suspension (Milk of Magnesia) sodium phosphates 19 gram-7 118 ml RI DAILY PRN Constipation 07/19/20 06/23/23 gram/118 mL enema cholecalciferol (vitamin D3) 25 25 mcg PO DAILY 06/23/23 06/23/23 mcg (1,000 unit) capsule (Vitamin D3) gabapentin 600 mg tablet 300 mg PO TID 06/23/23 06/23/23 methotrexate sodium 2.5 mg tablet 10 mg PO .weekly 06/23/23 06/23/23 sertraline 50 mg tablet (Zoloft) 50 mg PO QPM 06/23/23 06/23/23 Previous Rx's ?Medication ?Instructions ?Recorded cpap supplies #1 ea 07/15/20 cyanocobalamin (vitamin B-12) 1,000 mcg IM .monthly #1 mL 01/17/21 1,000 mcg/mL injection solution celecoxib 200 mg capsule 200 mg PO DAILY #90 caps 08/16/21 pantoprazole 40 mg tablet,delayed 40 mg PO DAILY #30 tabs 01/10/23 release folic acid 1 mg tablet 2 mg (2 x 1 mg) PO DAILY #90 tabs 02/20/23 Allergies Allergy/AdvReac Type Severity Reaction Status Date / Time No Known Allergies Allergy Verified 06/23/23 15:24 [facility] PFSH: Medical History Cognitive impairment Hypercholesterolemia Rheumatoid arthritis Osteoporosis Polychondritis Social History Smoking and tobacco/nicotine status: never used tobacco/nicotine Second hand smoke exposure: No Alcohol intake: never Substance/Drug Use: never Adopted: No Caregiver/support person: Yes Lives independently: No Housing: Assisted Living Facility Physical Exam Const: COMMON NORMALS: no acute distress and alert HENMT: COMMON NORMALS: normocephalic and atraumatic HEAD & SCALP: normocephalic and atraumatic Eye: COMMON NORMALS: Equal, round and reactive pupils present, EOMs intact bilaterally and no scleral icterus PUPIL: Yes Equal, round and reactive pupils present Resp: COMMON NORMALS: normal respiratory effort and No retractions Cardio: COMMON NORMALS: regular rate, regular rhythm and No murmurs present (Cardio) RATE: regular rate RHYTHM: regular rhythm GI: COMMON NORMALS: Normal to inspection, nondistended, normoactive bowel sounds present, Soft to palpation and non-tender PALPATION: Yes Soft to palpation Extremity: NARRATIVE EXTREMITY EXAM: Right leg is shortened and externally rotated. No obvious deformity of the right hip. No pain with palpation of the proximal femur. Some swelling and tenderness with palpation of the right midshaft femur and distal femur concerning for possible periprosthetic fracture. well-healed incision overlying the right knee indicative of of likely prior total knee surgery. Strong pulses in the right foot. No ecchymosis or palpable hematoma of the leg. Left leg is normal. Neuro: SENSORIUM/ORIENTATION: Yes alert OTHER: Disoriented, somnolent, grimaces and cries out to painful stimulus with motion of the right leg. Otherwise prefers to sleep and is not answering questions Skin: COMMON NORMALS: no rashes or lesions noted GENERAL SKIN EXAM: no rashes or lesions noted Course Vital Signs: Vital signs: Vital Signs Temperature 97.5 F L 12/24/24 01:46 Pulse Rate 82 12/24/24 04:00 Respiratory Rate 20 H 12/24/24 04:00 Blood Pressure 130/62 12/24/24 04:00 Pulse Oximetry 92 12/24/24 04:00 Oxygen Delivery Me thod Nasal Cannula 12/24/24 04:00 Oxygen Flow Rate 3 12/24/24 04:00 MDM - Fall Medical Decision Making In summary, patient is a demented 89-year-old female seen for fall from bed which was unwitnessed at group home. Daughters at the bedside relate that her dementia got significantly worse only 3 months ago and that at baseline she is paranoid, anxious, hallucinating, and very difficult to communicate with. Despite all this, the agree that her newfound right femur spiral fracture should be repaired. I spoke with on-call orthopedics who asked that the patient be admitted to the medicine service and he will consult. He asked that she remain n.p.o. Vital signs remained stable. Pain controlled with morphine. She will be admitted to the hospitalist service for definitive management by orthopedics. CT head, chest x-ray, EKG, labs were all drawn and no other injuries or acute problems noted. Lab Data 12/24/24 01:55 12/24/24 01:55 Radiology Impressions Chest X-Ray 12/24/24 02:03 IMPRESSION: 1. Mild nonspecific opacity left base possibly atelectasis, aspiration or contusion. 2. Otherwise, no acute process identified. Femur X-Ray 12/24/24 02:03 IMPRESSION: 1. Acute spiral fracture of the distal femur. 2. Post-operative change as described. Head CT 12/24/24 02:03 IMPRESSION: 1. No intracranial bleed or depressed calvarial fracture identified. 2. Diffuse age-related atrophy and small vessel ischemic change. Pelvis X-Ray 12/24/24 02:03 IMPRESSION: 1. No acute bony process is identified. 2. Post-operative change as described. Femur CT 12/24/24 02:46 IMPRESSION: 1. Acute spiral fracture distal femur as described. 2. Post-operative change as described. 3. Moderate suprapatellar effusion versus hemarthrosis. Laboratory Results WBC 7.15 10^3/uL (3.29-11.43) 12/24/24 01:55 RBC 4.00 10^6/uL (3.85-5.65) 12/24/24 01:55 Hgb 12.00 g/dL (11.27-16.99) 12/24/24 01:55 Hct 36.8 % (36-47) 12/24/24 01:55 MCV 92.0 fl (85-98) 12/24/24 01:55 MCH 30.0 pg (27-33) 12/24/24 01:55 MCHC 32.6 g/dL (30-55) 12/24/24 01:55 RDW 14.6 % (12.1-15.1) 12/24/24 01:55 Plt Count 182 10^3/cmm (157-399) 12/24/24 01:55 MPV 11.5 fL (7.4-10.4) H 12/24/24 01:55 Neut % (Auto) 56.8 % 12/24/24 01:55 Lymph % (Auto) 30.5 % 12/24/24 01:55 [place] % (Auto) 8.0 % 12/24/24 01:55 Eos % (Auto) 3.8 % 12/24/24 01:55 Baso % (Auto) 0.6 % 12/24/24 01:55 Neut # (Auto) 4.07 10^3/uL (1.8-7.7) 12/24/24 01:55 Lymph # (Auto) 2.2 10^3/uL (0.8-4.8) 12/24/24 01:55 [place] # (Auto) 0.6 10^3/uL (0.2-0.9) 12/24/24 01:55 Eos # (Auto) 0.3 10^3/uL (0.0-0.8) 12/24/24 01:55 Baso # (Auto) 0.0 10^3/uL (0.0-0.1) 12/24/24 01:55 Nucleated RBC % (auto) 0 % 12/24/24 01:55 Nucleated RBCs # 0.0 /100WBC 12/24/24 01:55 PT 12.70 SECONDS (12.1-14.9) 12/24/24 01:55 INR 0.89 (0.8-1.2) 12/24/24 01:55 APTT 23.1 SECONDS (23.9-36.7) L 12/24/24 01:55 Sodium 136 mmol/L (136-145) 12/24/24 01:55 Potassium 4.1 mmol/L (3.5-5.1) 12/24/24 01:55 Chloride 99 mmol/L (98-107) 12/24/24 01:55 Carbon Dioxide 26 mmol/L (22-29) 12/24/24 01:55 Anion Gap 15.1 (5-19) 12/24/24 01:55 BUN 25 mg/dL (8-23) H 12/24/24 01:55 Creatinine 0.7 mg/dL (0.5-0.9) 12/24/24 01:55 GFR Calculation Not Reportable 12/24/24 01:55 Glucose 115 mg/dL (65-115) 12/24/24 01:55 Calculated Osmolality 287 mOsm/kg (285-295) 12/24/24 01:55 Calcium 9.7 mg/dL (8.5-10.5) 12/24/24 01:55 Total Bilirubin 0.4 mg/dL (0.15-1.2) 12/24/24 01:55 AST 28 U/L (0-32) 12/24/24 01:55 ALT 20 U/L (0-33) 12/24/24 01:55 Alkaline Phosphatase 87 U/L (35-105) 12/24/24 01:55 Creatine Kinase 191 U/L (26-192) 12/24/24 01:55 Total Protein 7.3 g/dL (6.6-8.7) 12/24/24 01:55 Albumin 3.9 g/dL (3.5-5.2) 12/24/24 01:55 Globulin 3.4 g/dL (1.3-4.6) 12/24/24 01:55 Urine Color Yellow (Yellow) 12/24/24 03:33 Urine Appearance Clear (CLEAR) 12/24/24 03:33 Urine pH 5.5 (5-7) 12/24/24 03:33 Ur Specific Sulphur 1.018 (1.005-1.030) 12/24/24 03:33 Urine Protein Trace (Negative) A 12/24/24 03:33 Urine Glucose (UA) Negative (Normal) 12/24/24 03:33 Urine Ketones Negative (Negative) 12/24/24 03:33 Urine Blood Negative (Negative) 12/24/24 03:33 Urine Nitrate Negative (Negative) 12/24/24 03:33 Urine Bilirubin Negative (Negative) 12/24/24 03:33 Urine Urobilinogen 1.0 mg/dL (Negative) 12/24/24 03:33 Ur Leukocyte Esterase Negative (Negative) 12/24/24 03:33 Urine RBC 0-2 /hpf (0-2) 12/24/24 03:33 Urine WBC 0-5 /hpf (0-5) 12/24/24 03:33 Ur Squamous Epith Cells 0-5 /hpf (0-5) 12/24/24 03:33 Amorphous Sediment Not Reportable 12/24/24 03:33 Urine Bacteria None seen /hpf (NONE) 12/24/24 03:33 Hyaline Casts 2.05 /lpf 12/24/24 03:33 Blood Type A Positive 12/24/24 02:35 Rho(D) Type Rh positive 12/24/24 02:35 Antibody Screen Negative 12/24/24 02:35 All radiology interpretation(s) finalized by discharge EKG Data EKG 1: Interpretation: Time?0205?sinus rhythm with first-degree block and left bundle branch block pattern, rate of 79, negative Sgarbossa criteria, no T wave inversions, QTc = 453 Discharge Plan Discharge Patient Disposition: Admitted As Inpatient Clinical Impression: Displaced spiral fracture of shaft of right femur, Cognitive and behavioral changes, Lives in assisted living facility, Rheumatoid arthritis, Osteoporosis, Dementia Condition: Stable Coding Level of Care Code ED [employer] for Etta Rodriguez
--- OUTSIDE RECORDS SUMMARY | 2024-12-24 02:08 | XMS_ITS | Encounter Summary ---
Author Organization [facility] Address [address] [facility] Attn: [place] [address] Care Team Providers Care Electrical Instrument Technician Name Role Phone Seven Rosenbaum MD Primary Care Provider Encounter Details Date Type Department Care Team (Late st Contact Info) Description 04/26/2001 Outpatient Historical Non-Staff, Physician NO ADDRESS ON FILE Social History Tobacco Use Types Packs/Day Years Used Date Smoking Tobacco: Never Assessed Comments Unknown Sex and Gender Information Value Date Recorded Sex Assigned at Not on file Legal Sex Female 3:32 AM QA INTERN Gender Identity Not on file Sexual Orientation Not on file documented as of this encounter Plan of Treatment Not on file documented as of this encounter Visit Diagnoses Not on filedocumented in this encounter Care Teams Electrical Instrument Technician Relationship Specialty Start Date End Date Seven Rosenbaum MD [address] [place] [phone] PCP - General 08/19/03 documented as of this encounter
--- OUTSIDE RECORDS SUMMARY | 2024-12-24 02:08 | XMS_ITS | Encounter Summary ---
Author Organization [facility] Address [address] [place] [address] Care Team Providers Care Beverage Manager Name Role Phone Seven Rosenbaum MD Primary Care Provider Encounter Details Date Type Department Care Team (Latest Contact Info) Description 02/27/2003 Outpatient Historical [facility] PreAdmission Center E [place] [address] [place] [phone] Clint Chino MD NO ADDRESS ON FILE PREOP CARDIOVASC EXAM (Primary Dx) Social History Tobacco Use Types Packs/Day Years Used Date Smoking Tobacco: Never Assessed Comments Unknown Sex and Gender Information Value Date Recorded Sex Assigned at Not on file Legal Sex Female 3:32 AM SAMPLE CLERK Gender Identity Not on file Sexual Orientation Not on file documented as of this encounter Plan of Treatment Not on file documented as of this encounter Visit Diagnoses Diagnosis Pre-operative cardiovascular examination- Primary documented in this encounter Care Teams Beverage Manager Relationship Specialty Start Date End Date Seven Rosenbaum MD [address] [place] [phone] PCP - General 08/19/03 documented as of this encounter
--- OUTSIDE RECORDS SUMMARY | 2024-12-24 02:08 | XMS_ITS | Encounter Summary ---
Author Organization [facility] Address [address] [place] [address] Care Team Providers Care Power Saw Operator Name Role Phone Seven Rosenbaum MD Primary Care Provider Encounter Details Date Type Department Care Team ([facility] st Contact Info) Description 03/10/2003 Outpatient Historical [facility] IN BED Clint Chino MD NO ADDRESS ON FILE LUMBOSACRAL SPONDYLOSIS (Primary Dx) Social History Tobacco Use Types Packs/Day Years Used Date Smoking Tobacco: Never Assessed Comments Unknown Sex and Gender Information Value Date Recorded Sex Assigned at Not on file Legal Sex Female 3:32 AM CONCRETE PRECAST MOULDER Gender Identity Not on file Sexual Orientation Not on file documented as of this encounter Plan of Treatment Not on file documented as of this encounter Visit Diagnoses Diagnosis Lumbosacral spondylosis without myelopathy- Primary documented in this encounter Care Teams Power Saw Operator Relationship Specialty Start Date End Date Seven Rosenbaum MD [address] [place] [phone] PCP - General 08/19/03 documented as of this encounter
--- OUTSIDE RECORDS SUMMARY | 2024-12-24 02:08 | XMS_ITS | Encounter Summary ---
Author Organization [facility] Address [address] [place] [address] Care Team Providers Care Family Support Worker Name Role Phone Seven Rosenbaum MD Primary Care Provider Encounter Details Date Type Department Care Team ([facility] st Contact Info) Description 11/21/2001 Outpatient Historical [facility] OBGYN-[place] [address] [place] [address] Isi Batista MD [address] [facility] [address]tr[address], [address] [place] [address] SCREENING MAL NEOP-CERVIX (Primary Dx); ABDOMINAL PAIN LLQ; OTHER OVARIAN FAILURE Social History Tobacco Use Types Packs/Day Years Used Date Smoking Tobacco: Never Assessed Comments Unknown Sex and Gender Information Value Date Recorded Sex Assigned at Not on file Legal Sex Female 3:32 AM SECURITY DEVELOPER Gender Identity Not on file Sexual Orientation Not on file documented as of this encounter Plan of Treatment Not on file documented as of this encounter Visit Diagnoses Diagnosis Screening for malignant neoplasm of the cervix- Primary Abdominal pain, left lower quadrant Other ovarian failure(256.39) Other ovarian failure documented in this encounter Care Teams Family Support Worker Relationship Specialty Start Date End Date Seven Rosenbaum MD [address] [place] [phone] PCP - General 08/19/03 documented as of this encounter
--- OUTSIDE RECORDS SUMMARY | 2024-12-24 02:08 | XMS_ITS | Encounter Summary ---
Author Organization [facility] Address [address] [place] [address] Care Team Providers Care Confectionery Cooker Name Role Phone Seven Rosenbaum MD Primary Care Provider Encounter Details Date Type Department Care Team (Late st Contact Info) Description 12/09/2002 Outpatient Historical [facility] [address] [facility] [address] [place] [address] Isi Batista MD [address] [facility] [address]tr[address], [address] [place] [address] SCREENING MAL NEOP-CERVIX (Primary Dx) Social History Tobacco Use Types Packs/Day Years Used Date Smoking Tobacco: Never Assessed Comments Unknown Sex and Gender Information Value Date Recorded Sex Assigned at Not on file Legal Sex Female 3:32 AM PITCH FILLER Gender Identity Not on file Sexual Orientation Not on file documented as of this encounter Plan of Treatment Not on file documented as of this encounter Visit Diagnoses Diagnosis Screening for malignant neoplasm of the cervix- Primary documented in this encounter Care Teams Confectionery Cooker Relationship Specialty Start Date End Date Seven Rosenbaum MD [address] [place] [phone] PCP - General 08/19/03 documented as of this encounter
--- OUTSIDE RECORDS SUMMARY | 2024-12-24 02:08 | XMS_ITS | Encounter Summary ---
Author Organization [facility] Address [address] [place] [address] Care Team Providers Care Conservation Science Officer Name Role Phone Seven Rosenbaum MD Primary Care Provider Encounter Details Date Type Department Care Team (Latest Contact Info) Description 04/13/2003 Outpatient Historical [facility] PreAdmission Center E [place] [address] [place] [phone] Clint Chino MD NO ADDRESS ON FILE PREOP CARDIOVASC EXAM (Primary Dx) Social History Tobacco Use Types Packs/Day Years Used Date Smoking Tobacco: Never Assessed Comments Unknown Sex and Gender Information Value Date Recorded Sex Assigned at Not on file Legal Sex Female 3:32 AM BUSINESS DATA ANALYST Gender Identity Not on file Sexual Orientation Not on file documented as of this encounter Plan of Treatment Not on file documented as of this encounter Visit Diagnoses Diagnosis Pre-operative cardiovascular examination- Primary documented in this encounter Care Teams Conservation Science Officer Relationship Specialty Start Date End Date Seven Rosenbaum MD [address] [place] [phone] PCP - General 08/19/03 documented as of this encounter
--- OUTSIDE RECORDS SUMMARY | 2024-12-24 02:08 | XMS_ITS | Encounter Summary ---
Author Organization [facility] Address [address] [place] [address] Care Team Providers Care Certified Professional Coder Name Role Phone Seven Rosenbaum MD Primary Care Provider Encounter Details Date Type Department Care Team (Late st Contact Info) Description 11/21/2001 Outpatient Historical [facility] [address] [place] [phone] Isi Batista MD [address] [facility] Entrance, [address] [place] [address] ABDOMINAL PAIN LLQ (Primary Dx); FAMILY HX-OVARIAN MALIGNANCY Social History Tobacco Use Types Packs/Day Years Used Date Smoking Tobacco: Never Assessed Comments Unknown Sex and Gender Information Value Date Recorded Sex Assigned at Not on file Legal Sex Female 3:32 AM CO CHAIRMAN Gender Identity Not on file Sexual Orientation Not on file documented as of this encounter Plan of Treatment Not on file documented as of this encounter Visit Diagnoses Diagnosis Abdominal pain, left lower quadrant- Primary Family history of malignant neoplasm of ovary documented in this encounter Care Teams Certified Professional Coder Relationship Specialty Start Date End Date Seven Rosenbaum MD [address] [place] [phone] PCP - General 08/19/03 documented as of this encounter
--- OUTSIDE RECORDS SUMMARY | 2024-12-24 02:08 | XMS_ITS | Encounter Summary ---
Author Organization [facility] Address [address] [place] [address] Care Team Providers Care Pipelayer Name Role Phone Seven Rsoenbaum MD Primary Care Provider Encounter Details Date Type Department Care Team (Latest Contact Info) Description 06/08/1999 Outpatient Historical [facility] Breast [facility] [place] [address] [place] [phone] Jose Luis Pichardo MD NO ADDRESS ON FILE Family history of malignant neoplasm of breast (Primary Dx) Social History Tobacco Use Types Packs/Day Years Used Date Smoking Tobacco: Never Assessed Comments Unknown Sex and Gender Information Value Date Recorded Sex Assigned at Not on file Legal Sex Female 3:32 AM FLOSSER Gender Identity Not on file Sexual Orientation Not on file documented as of this encounter Plan of Treatment Not on file documented as of this encounter Visit Diagnoses Diagnosis Family history of malignant neoplasm of breast- Primary documented in this encounter Care Teams Pipelayer Relationship Specialty Start Date End Date Seven Rosenbaum MD [address] [place] [phone] PCP - General 08/19/03 documented as of this encounter
--- OUTSIDE RECORDS SUMMARY | 2024-12-24 02:08 | XMS_ITS | Encounter Summary ---
Author Organization [facility] Address [address] [facility] Attn: [place] [address] Care Team Providers Care Insurance Service Representative Name Role Phone Seven Rosenbaum MD Primary Care Provider Encounter Details Date Type Department Care Team (Late st Contact Info) Description 04/18/2001 Outpatient Historical Non-Staff, Physician NO ADDRESS ON FILE Social History Tobacco Use Types Packs/Day Years Used Date Smoking Tobacco: Never Assessed Comments Unknown Sex and Gender Information Value Date Recorded Sex Assigned at Not on file Legal Sex Female 3:32 AM MENTAL TELEPATHIST Gender Identity Not on file Sexual Orientation Not on file documented as of this encounter Plan of Treatment Not on file documented as of this encounter Visit Diagnoses Not on filedocumented in this encounter Care Teams Insurance Service Representative Relationship Specialty Start Date End Date Seven Rosenbaum MD [address] [place] [phone] PCP - General 08/19/03 documented as of this encounter
--- OUTSIDE RECORDS SUMMARY | 2024-12-24 02:08 | XMS_ITS | Encounter Summary ---
Author Organization [facility] Address [address] [place] [address] Care Team Providers Care Flexboard Operator Name Role Phone Seven Rosenbaum MD Primary Care Provider Encounter Details Date Type Department Care Team (Late st Contact Info) Description 12/09/2002 Outpatient Historical [facility] FY06 Isi Batista MD [address] [facility], [facility] [address] [place] [address] Social History Tobacco Use Types Packs/Day Years Used Date Smoking Tobacco: Never Assessed Comments Unknown Sex and Gender Information Value Date Recorded Sex Assigned at Not on file 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
--- OUTSIDE RECORDS SUMMARY | 2024-12-24 02:08 | XMS_ITS | Encounter Summary ---
Author Organization [facility] Address [address] [facility] Attn: [place] [address] Care Team Providers Care Policy Change Clerks Supervisor Name Role Phone Seven Rosenbaum MD Primary Care Provider Encounter Details Date Type Department Care Team (Late st Contact Info) Description 11/21/2001 Outpatient Historical Isi Batista MD [address] [facility], [facility] [address] [place] [address] Social History Tobacco Use Types Packs/Day Years Used Date Smoking Tobacco: Never Assessed Comments Unknown Sex and Gender Information Value Date Recorded Sex Assigned at Not on file Legal Sex Female 3:32 AM MANAGER [place] Gender Identity Not on file Sexual Orientation Not on file documented as of this encounter Plan of Treatment Not on file documented as of this encounter Visit Diagnoses Not on filedocumented in this encounter Care Teams Policy Change Clerks Supervisor Relationship Specialty Start Date End Date Seven Rosenbaum MD [address] [place] [phone] PCP - General 08/19/03 documented as of this encounter
--- OUTSIDE RECORDS SUMMARY | 2024-12-24 02:08 | XMS_ITS | Encounter Summary ---
Author Organization [facility] Address [address] [place] [address] Care Team Providers Care Glass Frame Fitter Name Role Phone Seven Rosenbaum MD Primary Care Provider Encounter Details Date Type Department Care Team (Latest Contact Info) Description 03/22/2000 Outpatient Historical [facility] OBDOMONIQUEN-[place] [address] [place] [address] Jonathan Camilo MD NO ADDRESS ON FILE Gynecologic examination (Primary Dx) Social History Tobacco Use Types Packs/Day Years Used Date Smoking Tobacco: Never Assessed Comments Unknown Sex and Gender Information Value Date Recorded Sex Assigned at Not on file Legal Sex Female 3:32 AM HANDYMAN Gender Identity Not on file Sexual Orientation Not on file documented as of this encounter Plan of Treatment Not on file documented as of this encounter Visit Diagnoses Diagnosis Gynecologic examination- Primary Gynecological examination documented in this encounter Care Teams Glass Frame Fitter Relationship Specialty Start Date End Date Seven Rosenbaum MD [address] [place] [phone] PCP - General 08/19/03 documented as of this encounter
--- OUTSIDE RECORDS SUMMARY | 2024-12-24 02:08 | XMS_ITS | Encounter Summary ---
Author Organization [facility] Address [address] [place] [address] Care Team Providers Care Hazardous Material Technician Name Role Phone Seven Rosenbaum MD Primary Care Provider Encounter Details Date Type Department Care Team (Late st Contact Info) Description 04/12/2000 Outpatient Historical [facility] [address] [facility] [address] [place] [phone] Jen Chris MD NO ADDRESS ON FILE Mastodynia (Primary Dx) Social History Tobacco Use Types Packs/Day Years Used Date Smoking Tobacco: Never Assessed Comments Unknown Sex and Gender Information Value Date Recorded Sex Assigned at Not on file Legal Sex Female 3:32 AM CARE INFORMATION ASSOCIATE Gender Identity Not on file Sexual Orientation Not on file documented as of this encounter Plan of Treatment Not on file documented as of this encounter Visit Diagnoses Diagnosis Mastodynia- Primary documented in this encounter Care Teams Hazardous Material Technician Relationship Specialty Start Date End Date Seven Rosenbaum MD [address] [place] [phone] PCP - General 08/19/03 documented as of this encounter
--- OUTSIDE RECORDS SUMMARY | 2024-12-24 02:08 | XMS_ITS | Encounter Summary ---
Author Organization [facility] Address [address] [place] [address] Care Team Providers Care Mattress Finisher Name Role Phone Seven Rosenbaum MD Primary Care Provider Encounter Details Date Type Department Care Team (Late st Contact Info) Description 03/17/2003 Outpatient Historical HIS IN BED Clint Chino MD NO ADDRESS ON FILE POSTSURGICAL STATES NEC (Primary Dx) Social History Tobacco Use Types Packs/Day Years Used Date Smoking Tobacco: Never Assessed Comments Unknown Sex and Gender Information Value Date Recorded Sex Assigned at Not on file Legal Sex Female 3:32 AM BUTTONHOLE FACER Gender Identity Not on file Sexual Orientation Not on file documented as of this encounter Plan of Treatment Not on file documented as of this encounter Visit Diagnoses Diagnosis Other postprocedural status(V45.89)- Primary Other postprocedural status documented in this encounter Care Teams Mattress Finisher Relationship Specialty Start Date End Date Seven Rosenbaum MD [address] [place] [phone] PCP - General 08/19/03 documented as of this encounter
--- OUTSIDE RECORDS SUMMARY | 2024-12-24 02:08 | XMS_ITS | Clinical Summary ---
Author Organization [facility] Address [address] [place] [address] Care Team Providers Care Cable Splicer Assistant Name Role Phone Seven Rosenbaum MD Primary Care Provider Allergies No known active allergies Medications GABAPENTIN PO Take by mouth. A ctive CITALOPRAM HYDROBROMIDE (CITALOPRAM PO) Take by mouth. Active METOPROLOL SUCCINATE PO Take by mouth. Ac tive rosuvastatin (CRESTOR) 5 mg Oral Tab Take 5 mg by mouth daily at bedtime. Active bimatoprost (LUMIGAN) 0.03 % OP Drop Administer 1 Drop in both eyes daily at bedtime. Active ALENDRONATE SODIUM (ALENDRONATE PO) Take by mouth. Active ASPIRIN (ASPIR-81 PO) Take by mouth. Activ e CALCIUM CARBONATE (CALTRATE 600 PO) Take by mouth. Active VITAMIN B COMPLEX (B COMPLEX 1 PO) Take by mouth. Active OMEGA-3 FATTY ACIDS (FISH OIL PO) Take by mouth. Activ e FLUORIDE ION/MULTIVITAMINS (MULTI-VITAMIN PO) Take by mouth. 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
--- OUTSIDE RECORDS SUMMARY | 2024-12-24 02:08 | XMS_ITS | Encounter Summary ---
Author Organization [facility] Address [address] [place] [address] Care Team Providers Care Inbound Telemarketer Name Role Phone Seven Rosenbaum MD Primary Care Provider Encounter Details Date Type Department Care Team (Late st Contact Info) Description 08/19/2003 Outpatient [facility] Breast Center [facility] [address] [place] [address] Seven Rosenbaum MD [address] [place] [phone] SCREENING MAMM-MAILG NEOPL-OTHER (Primary Dx) Social History Tobacco Use Types Packs/Day Years Used Date Smoking Tobacco: Never Assessed Comments Unknown Sex and Gender Information Value Date Recorded Sex Assigned at Not on file Legal Sex Female 3:32 AM PHARMACEUTICAL SERVICE REPRESENTATIVE Gender Identity Not on file Sexual Orientation Not on file documented as of this encounter Plan of Treatment Not on file documented as of this encounter Visit Diagnoses Diagnosis Other screening mammogram- Primary documented in this encounter Care Teams Inbound Telemarketer Relationship Specialty Start Date End Date Seven Rosenbaum MD [address] [place] [phone] PCP - General 08/19/03 documented as of this encounter
--- OUTSIDE RECORDS SUMMARY | 2024-12-24 02:08 | XMS_ITS | Encounter Summary ---
Author Organization [facility] Address [address] [place] [address] Care Team Providers Care Professor Of Social Work Name Role Phone Seven Rosenbaum MD Primary Care Provider Encounter Details Date Type Department Care Team (Late st Contact Info) Description 04/28/2002 Outpatient Historical [facility] Breast Center [place] [address] [place] [phone] eJn Chris MD NO ADDRESS ON FILE SCREENING MAMM-MAILG NEOPL-OTHER (Primary Dx) Social History Tobacco Use Types Packs/Day Years Used Date Smoking Tobacco: Never Assessed Comments Unknown Sex and Gender Information Value Date Recorded Sex Assigned at Not on file Legal Sex Female 3:32 AM CODING COMPLIANCE MANAGER Gender Identity Not on file Sexual Orientation Not on file documented as of this encounter Plan of Treatment Not on file documented as of this encounter Visit Diagnoses Diagnosis Other screening mammogram- Primary documented in this encounter Care Teams Professor Of Social Work Relationship Specialty Start Date End Date Seven Rosenbaum MD [address] [place] [phone] PCP - General 08/19/03 documented as of this encounter
--- OUTSIDE RECORDS SUMMARY | 2024-12-24 02:08 | XMS_ITS | Encounter Summary ---
Author Organization [facility] Address [address] [place] [address] Care Team Providers Care Linderman Machine Operator Name Role Phone Seven Rosenbaum MD Primary Care Provider Encounter Details Date Type Department Care Team (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
--- OUTSIDE RECORDS SUMMARY | 2024-12-24 02:08 | XMS_ITS | Encounter Summary ---
Author Organization [facility] Address [address] [place] [address] Care Team Providers Care Log Chain Feeder Name Role Phone Seven Rosenbaum MD Primary Care Provider Encounter Details Date Type Department Care Team (Latest Contact Info) Description 02/09/1999 Outpatient Historical [facility] OBDOMONIQUEN-[place] [address] [place] [address] Jonathan Camilo MD NO ADDRESS ON FILE Gynecologic examination (Primary Dx) Social History Tobacco Use Types Packs/Day Years Used Date Smoking Tobacco: Never Assessed Comments Unknown Sex and Gender Information Value Date Recorded Sex Assigned at Not on file Legal Sex Female 3:32 AM MANAGER BATTERY Gender Identity Not on file Sexual Orientation Not on file documented as of this encounter Plan of Treatment Not on file documented as of this encounter Visit Diagnoses Diagnosis Gynecologic examination- Primary Gynecological examination documented in this encounter Care Teams Log Chain Feeder Relationship Specialty Start Date End Date Seven Rosenbaum MD [address] [place] [phone] PCP - General 08/19/03 documented as of this encounter
--- OUTSIDE RECORDS SUMMARY | 2024-12-24 02:08 | XMS_ITS | Encounter Summary ---
Author Organization [email or web address] Address [address] [facility] Attn: [place] [address] Care Team Providers Care Laboratory Engineer Name Role Phone Seven Rosenbaum MD Primary Care Provider Encounter Details Date Type Department Care Team (Late st Contact Info) Description 11/21/2001 Outpatient Historical Isi Batista MD [address] [facility], [facility] [address] [place] [address] Social History Tobacco Use Types Packs/Day Years Used Date Smoking Tobacco: Never Assessed Comments Unknown Sex and Gender Information Value Date Recorded Sex Assigned at Not on file Legal Sex Female 3:32 AM CHARTER BOAT OPERATOR Gender Identity Not on file Sexual Orientation Not on file documented as of this encounter Plan of Treatment Not on file documented as of this encounter Visit Diagnoses Not on filedocumented in this encounter Care Teams Laboratory Engineer Relationship Specialty Start Date End Date Seven Rosenbaum MD [address] [place] [phone] PCP - General 08/19/03 documented as of this encounter
--- OUTSIDE RECORDS SUMMARY | 2024-12-24 02:08 | XMS_ITS | Encounter Summary ---
Author Organization [facility] Address [address] [place] [address] Care Team Providers Care Plumbing Technician Name Role Phone Seven Rosenbaum MD Primary Care Provider Encounter Details Date Type Department Care Team (Late st Contact Info) Description 12/23/2003 Outpatient Historical [facility] [address] [facility] [facility] [address] [place] [address] Isi Batista MD [address] [facility] Entrance, [place] [address] [place] [address] SCREENING MAL NEOP-CERVIX (Primary Dx) Social History Tobacco Use Types Packs/Day Years Used Date Smoking Tobacco: Never Assessed Comments Unknown Sex and Gender Information Value Date Recorded Sex Assigned at Not on file Legal Sex Female 3:32 AM SCHOOL SUPERVISOR Gender Identity Not on file Sexual Orientation Not on file documented as of this encounter Plan of Treatment Not on file documented as of this encounter Visit Diagnoses Diagnosis Screening for malignant neoplasm of the cervix- Primary documented in this encounter Care Teams Plumbing Technician Relationship Specialty Start Date End Date Seven Rosenbaum MD [address] [place] [phone] PCP - General 08/19/03 documented as of this encounter
--- OUTSIDE RECORDS SUMMARY | 2024-12-24 02:08 | XMS_ITS | Encounter Summary ---
Author Organization [facility] Address [address] [place] [address] Care Team Providers Care Forensic Medical Examiner Name Role Phone Seven Rosenbaum MD Primary Care Provider Encounter Details Date Type Department Care Team (Late st Contact Info) Description 09/09/2004 Outpatient [facility] Breast Center [facility] [address] [place] [address] Seven Rosenbaum MD [address] [place] [phone] SCREENING MAMM-MAILG NEOPL-OTHER (Primary Dx) Social History Tobacco Use Types Packs/Day Years Used Date Smoking Tobacco: Never Assessed Comments Unknown Sex and Gender Information Value Date Recorded Sex Assigned at Not on file Legal Sex Female 3:32 AM UTILITY PERSON Gender Identity Not on file Sexual Orientation Not on file documented as of this encounter Plan of Treatment Not on file documented as of this encounter Visit Diagnoses Diagnosis Other screening mammogram- Primary documented in this encounter Care Teams Forensic Medical Examiner Relationship Specialty Start Date End Date Seven Rosenbaum MD [address] [place] [phone] PCP - General 08/19/03 documented as of this encounter
--- OUTSIDE RECORDS SUMMARY | 2024-12-24 02:08 | XMS_ITS | Encounter Summary ---
Author Organization [facility] Address [address] [place] [address] Care Team Providers Care Group Therapy Counselor Name Role Phone Seven Rosenbaum MD Primary Care Provider Encounter Details Date Type Department Care Team (Late st Contact Info) Description 06/07/1998 Outpatient Historical [facility] Dermatology[address] [place] [phone] Huy Nichols MD [address] [place] [address] Circumscribe scleroderma (Primary Dx) Social History Tobacco Use Types Packs/Day Years Used Date Smoking Tobacco: Never Assessed Comments Unknown Sex and Gender Information Value Date Recorded Sex Assigned at Not on file Legal Sex Female 3:32 AM CLOTH SHADER Gender Identity Not on file Sexual Orientation Not on file documented as of this encounter Plan of Treatment Not on file documented as of this encounter Visit Diagnoses Diagnosis Circumscribe scleroderma- Primary Circumscribed scleroderma documented in this encounter Care Teams Group Therapy Counselor Relationship Specialty Start Date End Date Seven Rosenbaum MD [address] [place] [phone] PCP - General 08/19/03 documented as of this encounter
--- OUTSIDE RECORDS SUMMARY | 2024-12-24 02:08 | XMS_ITS | Encounter Summary ---
Author Organization [facility] Address [address] [place] [address] Care Team Providers Care Welder Production Line Combination Name Role Phone Seven Rosenbaum MD Primary Care Provider Encounter Details Date Type Department Care Team (Latest Contact Info) Description 04/18/2001 Outpatient Historical [facility] Center [address] [facility] [address] [place] [address] Carline Robert MD NO ADDRESS ON FILE Other screening mammogram (Primary Dx) Social History Tobacco Use Types Packs/Day Years Used Date Smoking Tobacco: Never Assessed Comments Unknown Sex and Gender Information Value Date Recorded Sex Assigned at Not on file Legal Sex Female 3:32 AM HEALTH SANITARIAN Gender Identity Not on file Sexual Orientation Not on file documented as of this encounter Plan of Treatment Not on file documented as of this encounter Visit Diagnoses Diagnosis Other screening mammogram- Primary documented in this encounter Care Teams Welder Production Line Combination Relationship Specialty Start Date End Date Seven Rosenbaum MD [address] [place] [phone] PCP - General 08/19/03 documented as of this encounter
--- OUTSIDE RECORDS SUMMARY | 2024-12-24 02:08 | XMS_ITS | Encounter Summary ---
Author Organization [facility] Address [address] [facility] Attn: [place] [address] Care Team Providers Care Spindle Carver Name Role Phone Seven Rosenbaum MD Primary Care Provider Encounter Details Date Type Department Care Team (Late Contact Info) Description 04/28/2002 Outpatient Historical Isi Batista MD [address] [facility], [facility] [address] [place] [address] Social History Tobacco Use Types Packs/Day Years Used Date Smoking Tobacco: Never Assessed Comments Unknown Sex and Gender Information Value Date Recorded Sex Assigned at Not on file Legal Sex Female 3:32 AM LEAD APPLICATION ARCHITECT Gender Identity Not on file Sexual Orientation Not on file documented as of this encounter Plan of Treatment Not on file documented as of this encounter Visit Diagnoses Not on filedocumented in this encounter Care Teams Spindle Carver Relationship Specialty Start Date End Date Seven Rosenbaum MD [address] [place] [phone] PCP - General 08/19/03 documented as of this encounter
--- OUTSIDE RECORDS SUMMARY | 2024-12-24 02:08 | XMS_ITS | Encounter Summary ---
Author Organization [facility] Address [address] [place] [address] Care Team Providers Care Energy Crop Farmer Name Role Phone Seven Rosenbaum MD Primary Care Provider Encounter Details Date Type Department Care Team (Late st Contact Info) Description 06/07/1998 Outpatient Historical [facility] [address] [facility] [address] [place] [phone] Jen Chris MD NO ADDRESS ON FILE Family history of malignant neoplasm of breast (Primary Dx) Social History Tobacco Use Types Packs/Day Years Used Date Smoking Tobacco: Never Assessed Comments Unknown Sex and Gender Information Value Date Recorded Sex Assigned at Not on file Legal Sex Female 3:32 AM MOLECULAR GENETIC PATHOLOGIST Gender Identity Not on file Sexual Orientation Not on file documented as of this encounter Plan of Treatment Not on file documented as of this encounter Visit Diagnoses Diagnosis Family history of malignant neoplasm of breast- Primary documented in this encounter Care Teams Energy Crop Farmer Relationship Specialty Start Date End Date Seven Rosenbaum MD [address] [place] [phone] PCP - General 08/19/03 documented as of this encounter
--- OUTSIDE RECORDS SUMMARY | 2024-12-24 02:08 | XMS_ITS | Encounter Summary ---
Author Organization [facility] Address [address] [place] [address] Care Team Providers Care Family Resource Coordinator Name Role Phone Seven Rosenbaum MD Primary Care Provider Encounter Details Date Type Department Care Team (Latest Contact Info) Description 08/19/2003 Outpatient Historical [facility] [address] [facility] [address] [place] [address] Carline Robert MD NO ADDRESS ON FILE SCREENING MAMM-MAILG NEOPL-OTHER (Primary Dx) Social History Tobacco Use Types Packs/Day Years Used Date Smoking Tobacco: Never Assessed Comments Unknown Sex and Gender Information Value Date Recorded Sex Assigned at Not on file Legal Sex Female 3:32 AM STEAM PRESS TENDER Gender Identity Not on file Sexual Orientation Not on file documented as of this encounter Plan of Treatment Not on file documented as of this encounter Visit Diagnoses Diagnosis Other screening mammogram- Primary documented in this encounter Care Teams Family Resource Coordinator Relationship Specialty Start Date End Date Seven Rosenbaum MD [address] [place] [phone] PCP - General 08/19/03 documented as of this encounter
--- OUTSIDE RECORDS SUMMARY | 2024-12-24 02:08 | XMS_ITS | Encounter Summary ---
Author Organization [facility] Address [address] [place] [address] Care Team Providers Care Prototype Fabricator Name Role Phone Seven Rosenbaum MD Primary Care Provider Encounter Details Date Type Department Care Team (Latest Contact Info) Description 06/07/1998 Outpatient Historical [facility] Raji Yanez NO ADDRESS ON FILE Gynecologic examination (Primary Dx) Social History Tobacco Use Types Packs/Day Years Used Date Smoking Tobacco: Never Assessed Comments Unknown Sex and Gender Information Value Date Recorded Sex Assigned at Not on file Legal Sex Female 3:32 AM DYNAMITER Gender Identity Not on file Sexual Orientation Not on file documented as of this encounter Plan of Treatment Not on file documented as of this encounter Visit Diagnoses Diagnosis Gynecologic examination- Primary Gynecological examination documented in this encounter Care Teams Prototype Fabricator Relationship Specialty Start Date End Date Seven Rosenbaum MD [address] [place] [phone] PCP - General 08/19/03 documented as of this encounter
--- OUTSIDE RECORDS SUMMARY | 2024-12-24 02:08 | XMS_ITS | Encounter Summary ---
Author Organization [facility] Address [address] [place] [address] Care Team Providers Care Tank Riveter Name Role Phone Seven Rosenbaum MD Primary Care Provider Encounter Details Date Type Department Care Team (Latest Contact Info) Description 12/23/2003 Outpatient Historical [facility] Rocio Elkins, VISITING PROFESSOR NO ADDRESS ON FILE GYNECOLOGIC EXAMINATION (Primary Dx) Social History Tobacco Use Types Packs/Day Years Used Date Smoking Tobacco: Never Assessed Comments Unknown Sex and Gender Information Value Date Recorded Sex Assigned at Not on file Legal Sex Female 3:32 AM THREAD SPINNER Gender Identity Not on file Sexual Orientation Not on file documented as of this encounter Plan of Treatment Not on file documented as of this encounter Visit Diagnoses Diagnosis Gynecological examination- Primary documented in this encounter Care Teams Tank Riveter Relationship Specialty Start Date End Date Seven Rosenbaum MD [address] [place] [phone] PCP - General 08/19/03 documented as of this encounter
--- OUTSIDE RECORDS SUMMARY | 2024-12-24 02:08 | XMS_ITS | Encounter Summary ---
Author Organization [facility] Address [address] [place] [address] Care Team Providers Care Savings Counselor Name Role Phone Seven Rosenbaum MD Primary Care Provider Encounter Details Date Type Department Care Team (Latest Contact Info) Description 09/09/2004 Outpatient Historical [facility] [address] [facility] [address] [place] [address] Carline Robert MD NO ADDRESS ON FILE SCREENING MAMM-MAILG NEOPL-OTHER (Primary Dx) Social History Tobacco Use Types Packs/Day Years Used Date Smoking Tobacco: Never Assessed Comments Unknown Sex and Gender Information Value Date Recorded Sex Assigned at Not on file Legal Sex Female 3:32 AM DIRECTOR BUSINESS MANAGEMENT Gender Identity Not on file Sexual Orientation Not on file documented as of this encounter Plan of Treatment Not on file documented as of this encounter Visit Diagnoses Diagnosis Other screening mammogram- Primary documented in this encounter Care Teams Savings Counselor Relationship Specialty Start Date End Date Seven Rosenbaum MD [address] [place] [phone] PCP - General 08/19/03 documented as of this encounter
[2024-12-24 02:10] LABS: Basophils % 0.6 %; Eosinophils # 0.3 10^3/uL (0.0-0.8); Eosinophils % 3.8 %; Hematocrit 36.8 % (36-47); Lymphocytes # 2.2 10^3/uL (0.8-4.8); Lymphocytes % 30.5 %; Mean Corpuscular HGB Conc 32.6 g/dL (30-55); Mean Platelet Volume 11.5 fL (7.4-10.4); Monocytes # 0.6 10^3/uL (0.2-0.9); Neutrophils # 4.07 10^3/uL (1.8-7.7); Neutrophils % 56.8 %; Nucleated Red Blood Cells % 0 %; Platelet Count 182 10^3/cmm (157-399); Red Cell Distribution Width 14.6 % (12.1-15.1); White Blood Count 7.15 10^3/uL (3.29-11.43)
[2024-12-24 02:20] LABS: INR 0.89 (0.8-1.2); Partial Thromboplastin Time 23.1 SECONDS (23.9-36.7)
[2024-12-24 02:28] LABS: Alanine Aminotransferase 20 U/L (0-33); Albumin Level 3.9 g/dL (3.5-5.2); Alkaline Phosphatase 87 U/L (35-105); Aspartate Amino Transferase 28 U/L (0-32); Blood Urea Nitrogen 25 mg/dL (8-23); Calcium 9.7 mg/dL (8.5-10.5); Carbon Dioxide 26 mmol/L (22-29); Chloride 99 mmol/L (98-107); Creatine Phosphokinase 191 U/L (26-192); Globulin 3.4 g/dL (1.3-4.6); Glucose 115 mg/dL (65-115); Osmolality Calculated 287 mOsm/kg (285-295); Sodium 136 mmol/L (136-145); Total Bilirubin 0.4 mg/dL (0.15-1.2); Total Protein 7.3 g/dL (6.6-8.7)
[2024-12-24 02:29] LABS: Anion Gap 15.1 (5-19); Potassium 4.1 mmol/L (3.5-5.1)
--- NOTE | 2024-12-24 02:46 | CTR_ITS ---
PROCEDURE INFORMATION: Exam: CT Right Lower Extremity Without Contrast, Thigh Exam date and time: 12/24/2024 3:05 AM Age: 89 years old Clinical indication: Injury or trauma; Fall; Blunt trauma; Thigh or upper leg; Right; Prior surgery; Surgery date: 6+ months; Surgery type: Knee replacement TECHNIQUE: Imaging protocol: CT of the right lower extremity without contrast was performed. Exam focused on the thigh. Radiation optimization: All CT scans at this facility use at least one of these dose optimization techniques: automated exposure control; mA and/or kV adjustment per patient size (includes targeted exams where dose is matched to clinical indication); or iterative reconstruction. COMPARISON: CR XR femur RT min 2V* [id number] 12/24/2024 2:08 AM RADIATION DOSE METRICS: Total DLP (mGy-cm): 537.1 FINDINGS: Bones/joints: There is diffuse osteopenia which somewhat limits bony assessment. Right hip arthroplasty is present. Again noted is an acute spiral fracture involving the distal femur with distraction and displacement and mild bony overlap. No significant angulation is appreciated. Remaining bony alignment is within normal limits with no additional fracture identified. There is mild degenerative arthropathy. Soft tissues: Soft tissue swelling distal thigh. Moderate suprapatellar effusion versus hemarthrosis. CT/CT femur RT wo con* [id number] IMPRESSION: 1. Acute spiral fracture distal femur as described. 2. Post-operative change as described. 3. Moderate suprapatellar effusion versus hemarthrosis.
[2024-12-24] MEDS: morphine 4 mg/mL SDV 1 mL 2 MG IVP ×3 (02:54→15:39)
[2024-12-24 03:37] LABS: Bilirubin Urine Negative (Negative); Blood Urine Negative (Negative); Glucose Urine UA Negative (Normal); Ketones Urine Negative (Negative); Leukocyte Esterase Urine Negative (Negative); Nitrate Urine Negative (Negative); Protein Urine Trace (Negative); Specific Gravity, Urine 1.018 (1.005-1.030); Urine Appearance Clear (CLEAR); Urine Color Yellow (Yellow); pH Urine 5.5 (5-7)
[2024-12-24 03:42] LABS: Add Urine Microscopic? YES; Bacteria Urine None Seen /hpf; Hyaline Casts Urine 2.05 /lpf; RBC Urine 0-2 /hpf (0-2); Squamous Epithelial Cell Urine 0-5 /hpf (0-5); WBC Urine 0-5 /hpf (0-5)
--- NOTE | 2024-12-24 07:07 | PM.HP ---
Providers/Chief Complaint Admitting Physician: Víctor Kerr MD Primary Care Provider: Khris Duncan MD Chief Complaint: fall History of Present Illness Vandana Christie is a 89 year old female who was found down at [facility] where she resides. She does not recall her fall or being found down. Patient does know that she is here because of her leg but did not know what kind of facility this was or the name of the facility. She does not know her age or the date or year. She thought she was 85. Currently patient is pleasantly demented and not a good historian. She is companied by her daughter Mary and son-in-law Fredrick. Patient was staying at the [facility] assisted living until she no longer recognized her staff and locked the RNs out. She was kicking at people and tried to pull the screen out of the window to escape. Patient had become paranoid and afraid of men. She escaped out the door wants and so 3 weeks ago was transferred over to [place]. She is on medications which have made a tremendous improvement. She is now pleasantly demented Daughter reports patient has never had PA, stroke or lung disease. She has never been a smoker user of alcohol or drugs. She was a sales lady until age 67. She is now reasonably happy with the medication changes. Dementia started 8 years ago. She does not always recognize her daughter and son-in-law Review of Systems Narrative: Taken from daughter patient has not had chest pain nausea vomiting or recent urinary tract infection symptoms. Medications/Allergies Home Medications ?Medication ?Instructions ?Recorded ?Confirmed ?Last Taken ?Type propylene glycol 1 %-glycerin 0.3 2 drop ophthalmic (eye) DAILY PRN 03/02/20 06/23/23 Unknown History % eye drops (Artificial Tears Dry Eye(S) (glycerin-peg)) cpap supplies #1 ea 07/15/20 06/23/23 Unknown Rx Lactobacillus rhamnosus GG 10 1 cap PO DAILY PRN Constipation 07/19/20 06/23/23 Unknown History billion cell capsule (Culturelle) acetaminophen 325 mg tablet 325 mg PO QID PRN Pain 07/19/20 06/23/23 06/23/23 History (Tylenol) bisacodyl 10 mg rectal suppository 10 mg DC DAILY PRN Constipation 07/19/20 06/23/23 Unknown History magnesium 250 mg tablet 500 mg PO DAILY 07/19/20 06/23/23 06/23/23 History magnesium hydroxide 400 mg/5 mL 5 ml PO DAILY PRN Constipation 07/19/20 06/23/23 Unknown History oral suspension (Milk of Magnesia) sodium phosphates 19 gram-7 118 ml DC DAILY PRN Constipation 07/19/20 06/23/23 Unknown History gram/118 mL enema cyanocobalamin (vitamin B-12) 1,000 mcg IM .monthly #1 mL 01/17/21 06/23/23 Unknown Rx 1,000 mcg/mL injection solution celecoxib 200 mg capsule 200 mg PO DAILY #90 caps 08/16/21 06/23/23 06/23/23 Rx pantoprazole 40 mg tablet,delayed 40 mg PO DAILY #30 tabs 01/10/23 06/23/23 06/23/23 Rx release folic acid 1 mg tablet 2 mg (2 x 1 mg) PO DAILY #90 tabs 02/20/23 06/23/23 06/23/23 Rx cholecalciferol (vitamin D3) 25 25 mcg PO DAILY 06/23/23 06/23/23 06/23/23 History mcg (1,000 unit) capsule (Vitamin D3) gabapentin 600 mg tablet 300 mg PO TID 06/23/23 06/23/23 06/23/23 History methotrexate sodium 2.5 mg tablet 10 mg PO .weekly 06/23/23 06/23/23 Unknown History sertraline 50 mg tablet (Zoloft) 50 mg PO QPM 06/23/23 06/23/23 06/22/23 History Allergies Allergy/AdvReac Type Severity Reaction Status Date / Time No Known Allergies Allergy Verified 06/23/23 15:24 PFSH Acute PFSH: Medical History (Updated 12/24/24 @ 07:11 by Víctor Kerr MD) HTN (hypertension) EDS (Dany-Danlos syndrome) Cognitive impairment Hypercholesterolemia Rheumatoid arthritis Osteoporosis Polychondritis Surgical History (Updated 12/24/24 @ 07:11 by Víctor Kerr MD) History of total right knee replacement Social History (Updated 12/24/24 @ 07:09 by Víctor Kerr MD) Smoking and tobacco/nicotine status: never used tobacco/nicotine Second hand smoke exposure: No Alcohol intake: never Substance/Drug Use: never Additional social history: CODE STATUS discussed with daughter Mary and son-in-law Fredrick in presence of patient who did not interject or ask any questions. Due to advanced age and limited quality of life as well as progressive dementia daughter has specified DNR status as discussed on 12/24/[address] Víctor Kerr MD Adopted: No Caregiver/support person: Yes Lives independently: No Housing: Assisted Living Facility Previous occupational history: Works as sales lady for 27 years Vitals/I&O/Wt Last Vital Signs Temp 97.5 F L 12/24/24 01:46 Pulse 82 12/24/24 04:00 Resp 20 H 12/24/24 04:00 BP 130/62 12/24/24 04:00 Pulse Ox 92 12/24/24 04:00 O2 Del Method Nasal Cannula 12/24/24 04:00 O2 Flow Rate 3 12/24/24 04:00 Weight last 48 hrs Weight 70.307 kg Physical Exam Narrative: General well-developed well-nourished female in no acute cardiopulmonary distress CV regular rate and rhythm with a 4/6 systolic ejection murmur best heard at the left sternal border Lungs clear to auscultation bilaterally Abdomen positive bowel sounds soft nontender Legs right 1 is externally rotated and tender in the mid femur. Neuro patient is able to move her left foot and toes easily the right side she is able to wiggle but has pain. Vascular left dorsal pedal pulses 1+ right side is trace to 1 coloration of the foot is intact and is still warm on the right foot Urinary Catheter Management: Lucero: Cath Placed During This Visit: yes Urinary Catheter Date of Insertion: 12/24/24 Urinary Catheter Time of Insertion: 03:20 Data 12/24/24 01:55 12/24/24 01:55 A&P Assessment and plan (1) Displaced spiral fracture of shaft of right femur: Patient has progressive dementia but recently well compensated. She will not survive without walking and will need a ride for her right distal femur which patient's daughter and patient are agreeable to proceeding. (2) Cognitive and behavioral changes: Continue with home psych meds appears to primarily be sertraline. I do not see that she is on an antipsychotic. Will request medication list from [facility] (3) Dementia: As above pleasantly demented PDMP PDMP Reviewed: Not Reviewed Attestations Medical Necessity Statement*: Patient will require greater than 2 midnights for surgery and recovery before placement to likely prison facility or return to memory care Coding Level of Care Code Acute Code for Chg Fwd Diagnoses Displaced spiral fracture of shaft of right femur S72.341A Cognitive and behavioral changes R41.89; R46.89 Dementia F03.90 Time Spent (min) 55
[2024-12-24] MEDS: heparin 5,000 unit/mL INJ 1 mL 5000 UNIT SUBCUT (07:32)
[2024-12-24] MEDS: CELEcoxib 200 mg Capsule PO (10:42)
[2024-12-24] MEDS: folic acid 1 mg Tablet 2 MG PO (10:43)
[2024-12-24] MEDS: cholecalciferol (vitamin D3) 1,000 unit Tablet 1000 UNIT PO (10:43)
[2024-12-24] MEDS: gabapentin 300 mg Capsule PO ×2 (10:43→15:38)
[2024-12-24] MEDS: pantoprazole DR 40 mg Tablet PO (10:43)
[2024-12-24 11:18] LABS: Estmated Average Glucose 131; Hemoglobin A1C 6.2 % (4.0-6.0)
[2024-12-24 11:33] LABS: Procalcitonin 0.05 ng/mL (0-0.5); Thyroid Stimulating Hormone 2.75 uIU/mL (0.27-4.20)
--- NOTE | 2024-12-24 13:23 | PM.CONSULT ---
Providers/Reason For Consult Consulting Physician/Specialty*: Angel David DO/orthopedic surgery Reason for Consult*: Right distal third femur shaft fracture around femur prosthesis Requesting Physician: Dr. Olson?emergency department Attending Physician: Axel Rolon MD Primary Care Provider: Khris Duncan MD History of Present Illness History of Present Illness Vandana Christie is a 89 year old female demented and memory care presented to the emergency department overnight with a spiral distal third femur shaft fracture with extension just superior to the right total knee femur prosthesis. Patient was worked up in the emergency department to find fracture orthopedics was consulted for evaluation treatment recommendations internal medicine's admitted patient as a primary. Patient is not a good historian due to her dementia on my evaluation however I am able to discuss with patient's daughter as well as granddaughter. According to them she actively ambulates at the memory care facility supposed to utilize a walker but often times forgets and does not. Denies any other pain prior. Has a history of a right total knee arthroplasty. Review of Systems General: Reports: ROS unobtainable due to mental status Medications/Allergies Home Medications ?Medication ?Instructions ?Recorded ?Confirmed ?Last Taken ?Type propylene glycol 1 %-glycerin 0.3 2 drop ophthalmic (eye) DAILY PRN 03/02/20 12/24/24 Unknown History % eye drops (Artificial Tears Dry Eye(S) (glycerin-peg)) cpap supplies #1 ea 07/15/20 12/24/24 Unknown Rx Lactobacillus rhamnosus GG 10 1 cap PO DAILY PRN Constipation 07/19/20 12/24/24 Unknown History billion cell capsule (Culturelle) acetaminophen 325 mg tablet 325 - 650 mg PO QID PRN Pain 07/19/20 12/24/24 06/23/23 History (Tylenol) bisacodyl 10 mg rectal suppository 10 mg [place] DAILY PRN Constipation 07/19/20 12/24/24 Unknown History magnesium hydroxide 400 mg/5 mL 5 ml PO DAILY PRN Constipation 07/19/20 12/24/24 Unknown History oral suspension (Milk of Magnesia) sodium phosphates 19 gram-7 118 ml [place] DAILY PRN Constipation 07/19/20 12/24/24 Unknown History gram/118 mL enema celecoxib 200 mg capsule 200 mg PO DAILY #90 caps 08/16/21 12/24/24 12/23/24 Rx pantoprazole 40 mg tablet,delayed 40 mg PO DAILY #30 tabs 01/10/23 12/24/24 12/23/24 Rx release folic acid 1 mg tablet 2 mg (2 x 1 mg) PO DAILY #90 tabs 02/20/23 12/24/24 12/23/24 Rx methotrexate sodium 2.5 mg tablet 10 mg PO .weekly 06/23/23 12/24/24 Unknown History buspirone 5 mg tablet 5 mg PO BID agitation 12/24/24 12/24/24 12/23/24 History hydroxyzine HCl 25 mg tablet 25 mg PO BEDTIME 12/24/24 12/24/24 12/22/24 History lorazepam 0.5 mg tablet 0.5 mg PO .@12PM 12/24/24 12/24/24 12/23/24 History lorazepam 0.5 mg tablet 0.5 mg PO TID PRN Anxiety 12/24/24 12/24/24 Unknown History quetiapine 50 mg tablet 50 mg PO BEDTIME 12/24/24 12/24/24 Unknown History sertraline 100 mg tablet 100 mg PO BEDTIME 12/24/24 12/24/24 12/22/24 History Allergies Allergy/AdvReac Type Severity Reaction Status Date / Time No Known Allergies Allergy Verified 06/23/23 15:24 Current Medications Generic Name Dose Route Start Last Admin Trade Name Kirillq PRN Reason Stop Dose Admin Celecoxib 200 mg 12/24/24 09:00 12/24/24 10:42 Celecoxib 200 Mg Capsule PO 200 mg DAILY KRISTEN Administration Folic Acid 2 mg 12/24/24 09:00 12/24/24 10:43 Folic Acid 1 Mg Tablet PO 2 mg DAILY KRISTEN Administration Gabapentin 300 mg 12/24/24 09:00 12/24/24 10:43 Gabapentin 300 Mg Capsule PO 300 mg TID KRISTEN Administration Morphine Sulfate 2 mg 12/24/24 09:30 12/24/24 10:23 Morphine 4 Mg/Ml Sdv 1 Ml IVP 2 mg Q4H PRN Administration SEVERE PAIN Pantoprazole Sodium 40 mg 12/24/24 09:00 12/24/24 10:[address] 40 Mg Tablet PO 40 mg DAILY KRISTEN Administration Vitamin D 1,000 unit 12/24/24 09:00 12/24/24 10:43 Cholecalciferol (Vitamin D3) 1,000 Unit Tablet PO 1,000 unit DAILY KRISTEN Administration PFSH Acute PFSH: Medical History (Updated 12/24/24 @ 07:11 by Víctor Kerr MD) HTN (hypertension) EDS (Dany-Danlos syndrome) Cognitive impairment Hypercholesterolemia Rheumatoid arthritis Osteoporosis Polychondritis Surgical History (Updated 12/24/24 @ 07:11 by Víctor Kerr MD) History of total right knee replacement Social History (Updated 12/24/24 @ 07:09 by Víctor Kerr MD) Smoking and tobacco/nicotine status: never used tobacco/nicotine Second hand smoke exposure: No Alcohol intake: never Substance/Drug Use: never Additional social history: CODE STATUS discussed with daughter Mary and son-in-law Fredrick in presence of patient who did not interject or ask any questions. Due to advanced age and limited quality of life as well as progressive dementia daughter has specified DNR status as discussed on 12/24/[address] Víctor Kerr MD Adopted: No Caregiver/support person: Yes Lives independently: No Housing: Assisted Living Facility Previous occupational history: Works as sales lady for 27 years Vitals/I&O/Wt Last Vital Signs Temp 97.5 F L 12/24/24 01:46 Pulse 75 12/24/24 12:52 Resp 20 H 12/24/24 04:00 BP 121/59 12/24/24 12:52 Pulse Ox 98 12/24/24 12:52 O2 Del Method Oxymask 12/24/24 07:48 O2 Flow Rate 3 12/24/24 04:00 Weight last 48 hrs Weight 155 lb Physical Exam Narrative: Patient is able to to follow simple commands, but dementia and mental status does limit examination. Examination right lower extremity: Examination of the right lower extremity demonstrates patient has tenderness palpation of the right?femur?as well as the right lower extremity is shortened and externally rotated pt has positive logroll on?examination unable to perform Stinchfield's secondary to pain and discomfort.? Deformity at the femur shaft previous total knee incision well-healed no signs of infection. Patient has noticeable malrotation of the right femur. Patient is able to wiggle toes plantarflex and dorsiflex ankle, patient nods to sensations intact to light touch distally.? Distal pulses are palpable right lower extremity is warm and well-perfused.? Swelling noted about the right femur. Secondary survey?examination unremarkable For any acute pathology to the bilateral upper extremities or contralateral lower extremity.? pt? has no tenderness to palpation to the bilateral upper extremities joints and no noticeable deformities.? ?Contralateral lower extremity has no tenderness to the?hip?knee or ankle with no appreciable deformities and is able to plantarflex and dorsiflex ankle , pt nods to sensations intact to light touch distally as well as wiggle toes.? Distal pulses palpable.? Negative pelvic compression test, no tenderness palpation of the spine. Urinary Catheter Management: Lucero: Cath Placed During This Visit: yes Reason for Continuing Indwelling Catheter: Perioperative Use in Selected Surgeries Urinary Catheter Date of Insertion: 12/24/24 Urinary Catheter Time of Insertion: 03:20 Data 12/24/24 01:55 12/24/24 01:55 Xray Ortho: My impression: Ordering Provider/Ordering MD: Angel Olson Date of Service: 12/24/24 Procedure(s): XR femur RT min 2V* [id number] Accession Number(s): [id number] Report Number: [id number] PROCEDURE INFORMATION: Exam: XR Right Femur Exam date and time: 12/24/2024 2:08 AM Age: 89 years old Clinical indication: Injury or trauma; Fall; Blunt trauma; Thigh or upper leg; Right; Additional info: Injury, suspect fracture TECHNIQUE: Imaging protocol: Radiologic exam of the right femur. Views: 2 views. COMPARISON: CR XR hip RT 2-3V wo/w pel* [id number] 06/23/2023 2:32 PM FINDINGS: Bones/joints: There is diffuse osteopenia which somewhat limits bony assessment. There is an acute spiral fracture involving the distal femur with mild distraction and angulation. Right knee arthroplasty noted. There is mild degenerative arthropathy. Fusion of the lumbosacral spine incompletely visualized. Soft tissues: Unremarkable. XR/XR femur RT min 2V* [id number] IMPRESSION: 1. Acute spiral fracture of the distal femur. 2. Post-operative change as described. Ordering Provider/Ordering MD: Angel Olson Date of Service: 12/24/24 Procedure(s): XR pelvis 1-2V* [id number] Accession Number(s): [id number] Report Number: [id number] PROCEDURE INFORMATION: Exam: XR Pelvis Exam date and time: 12/24/2024 2:18 AM Age: 89 years old Clinical indication: Injury or trauma; Fall; Blunt trauma (contusions or hematomas); Right; Other: Thigh TECHNIQUE: Imaging protocol: Radiologic exam of the pelvis. Views: 1 or 2 view. COMPARISON: CR XR hip RT 2-3V wo/w pel* [id number] 06/23/2023 2:32 PM FINDINGS: Bones/joints: There is diffuse osteopenia which somewhat limits bony assessment.There is mild degenerative arthropathy. No acute fracture or dislocation identified. L5-S1 fusion. Soft tissues: Unremarkable. XR/XR pelvis 1-2V* [id number] IMPRESSION: 1. No acute bony process is identified. 2. Post-operative change as described. Ordering Provider/Ordering MD: Angel Olson Date of Service: 12/24/24 Procedure(s): CT femur RT wo con* [id number] Accession Number(s): [id number] Report Number: [id number] PROCEDURE INFORMATION: Exam: CT Right Lower Extremity Without Contrast, Thigh Exam date and time: 12/24/2024 3:05 AM Age: 89 years old Clinical indication: Injury or trauma; Fall; Blunt trauma; Thigh or upper leg; Right; Prior surgery; Surgery date: 6+ months; Surgery type: Knee replacement TECHNIQUE: Imaging protocol: CT of the right lower extremity without contrast was performed. Exam focused on the thigh. Radiation optimization: All CT scans at this facility use at least one of these dose optimization techniques: automated exposure control; mA and/or kV adjustment per patient size (includes targeted exams where dose is matched to clinical indication); or iterative reconstruction. COMPARISON: CR XR femur RT min 2V* [id number] 12/24/2024 2:08 AM RADIATION DOSE METRICS: Total DLP (mGy-cm): 537.1 FINDINGS: Bones/joints: There is diffuse osteopenia which somewhat limits bony assessment. Right hip arthroplasty is present. Again noted is an acute spiral fracture involving the distal femur with distraction and displacement and mild bony overlap. No significant angulation is appreciated. Remaining bony alignment is within normal limits with no additional fracture identified. There is mild degenerative arthropathy. Soft tissues: Soft tissue swelling distal thigh. Moderate suprapatellar effusion versus hemarthrosis. CT/CT femur RT wo con* [id number] IMPRESSION: 1. Acute spiral fracture distal femur as described. 2. Post-operative change as described. 3. Moderate suprapatellar effusion versus hemarthrosis. A&P Assessment and plan (1) Displaced spiral fracture of shaft of right femur: Plan Orthopedics consulted Hospitalist admitted patient is primary Imaging reviewed?displaced right distal third femur shaft fracture Labs reviewed Pain control Nonweightbearing right lower extremity Au's traction n.p.o. Hold anticoagulation Plan?to for surgery today for right femur open reduction internal fixation plan will be with a retrograde nail but will have lateral distal femur locking plates available if needed. MDM: Patient at this point in time is a 89-year-old female who sustained a distal third femur shaft fracture this does spiral down to the superior pole of the supracondylar region by the femur prosthesis of a total knee replacement the total knee replacement is a cruciate retaining which given this fracture pattern as well as goals of hopefully earlier mobilization would recommend a retrograde nailing which I talked about this in detail with the family I did express that there is possibility that we may have to resort to distal femur locking plates depending on how the fixation goes from the retrograde nail. At this point in time she was admitted by hospitalist orthopedics was consulted I had a good discussion with patient's POA's her daughter as well as her granddaughter who was present at bedside the patient is demented at baseline and a poor historian. She is able to simply follow commands however for examination. At this point in time given the displacement and malrotation I would recommend surgical intervention 1 for pain control as well as to further mobilization which we talked about this in detail we talked about the ins and outs of the procedure the risk benefits complication alternatives of surgery. Risk of surge include but not limited to make a better make it worse, injury to nerves vessels or tendons, blood clot, heart attack, stroke, on the table, acute blood loss, infection, malunion nonunion hardware failure. Understanding risk of surgery patients family/POA elects proceed with surgical intervention. All questions have been answered at this time. Reviewed consent with patient's POA as well as signed the right lower extremity for planned procedure patient will proceed to the OR today. PDMP PDMP Reviewed: Not Reviewed Coding Level of Care Code Acute Code for Chg Fwd Diagnoses Displaced spiral fracture of shaft of right femur S72.341A Time Spent (min) 50
[2024-12-24] MEDS: sodium chlor 0.9% + KCl 20 mEq 20 MEQ/1,000 ML BAG 100 MEQ IV (14:57)
[2024-12-24] MEDS: docusate sodium 100 mg Capsule PO (15:38)
--- NOTE | 2024-12-24 16:18 | ANES.PREANE2 ---
Pre-Anesthetic Assessment Height/Weight: Height 1.63 m Weight 78.075 kg Temp Pulse Resp BP Pulse Ox O2 Del Method O2 Flow Rate 99.2 F 57 L 16 157/63 96 Nasal Cannula 3 12/24/24 15:31 12/24/24 15:31 12/24/24 15:39 12/24/24 15:31 12/24/24 15:31 12/24/24 15:31 12/24/24 04:00 Operation Date: 12/24/24 18:55 Proposed Procedures p Retrograde IM Nail Femur(Right) - Angel Joann, DO Familial anesthetic complications: None Was Beta Farnaz taken within 24 hours: N/A Was Clonidine taken within 24 hours: N/A Last intake: > 8 hrs Social No alcohol and No tobacco Exam alert, clear to auscultation bilaterally and regular rate & rhythm Airway Mallampati: Class I Dentition: false Musc/skel Rheumatoid Arthritis polychondritis Neuropsych Dementia Anesthetic Plan ASA status: 2 Anesthesia: General Risk of > 500 ml blood loss (7ml/kg in children): No Other Pertinent Information History obtained from daughter Melisa Armando at bedside Medications/Allergies Home Medications ?Medication ?Instructions ?Recorded ?Confirmed ?Last Taken ?Type propylene glycol 1 %-glycerin 0.3 2 drop ophthalmic (eye) DAILY PRN 03/02/20 12/24/24 Unknown History % eye drops (Artificial Tears Dry Eye(S) (glycerin-peg)) cpap supplies #1 ea 07/15/20 12/24/24 Unknown Rx Lactobacillus rhamnosus GG 10 1 cap PO DAILY PRN Constipation 07/19/20 12/24/24 Unknown History billion cell capsule (Culturelle) acetaminophen 325 mg tablet 325 - 650 mg PO QID PRN Pain 07/19/20 12/24/24 06/23/23 History (Tylenol) bisacodyl 10 mg rectal suppository 10 mg [place] DAILY PRN Constipation 07/19/20 12/24/24 Unknown History magnesium hydroxide 400 mg/5 mL 5 ml PO DAILY PRN Constipation 07/19/20 12/24/24 Unknown History oral suspension (Milk of Magnesia) sodium phosphates 19 gram-7 118 ml [place] DAILY PRN Constipation 07/19/20 12/24/24 Unknown History gram/118 mL enema celecoxib 200 mg capsule 200 mg PO DAILY #90 caps 02/12/24/24 12/23/24 Rx pantoprazole 40 mg tablet,delayed 40 mg PO DAILY #30 tabs 01/10/23 12/24/24 12/23/24 Rx release folic acid 1 mg tablet 2 mg (2 x 1 mg) PO DAILY #90 tabs 02/20/23 12/24/24 12/23/24 Rx methotrexate sodium 2.5 mg tablet 10 mg PO .weekly 06/23/23 12/24/24 Unknown History buspirone 5 mg tablet 5 mg PO BID agitation 12/24/24 12/24/24 12/23/24 History hydroxyzine HCl 25 mg tablet 25 mg PO BEDTIME 12/24/24 12/24/24 12/22/24 History lorazepam 0.5 mg tablet 0.5 mg PO .@12PM 12/24/24 12/24/24 12/23/24 History lorazepam 0.5 mg tablet 0.5 mg PO TID PRN Anxiety 12/24/24 12/24/24 Unknown History quetiapine 50 mg tablet 50 mg PO BEDTIME 12/24/24 12/24/24 Unknown History sertraline 100 mg tablet 100 mg PO BEDTIME 12/24/24 12/24/24 12/22/24 History Allergies Allergy/AdvReac Type Severity Reaction Status Date / Time No Known Allergies Allergy Verified 06/23/23 15:24 Current Medications Generic Name Dose Route Start Last Admin Trade Name Kirillq PRN Reason Stop Dose Admin Celecoxib 200 mg 12/24/24 09:00 12/24/24 10:42 Celecoxib 200 Mg Capsule PO 200 mg DAILY KRISTEN Administration Docusate Sodium 100 mg 12/24/24 14:45 12/24/24 15:38 Docusate Sodium 100 Mg Capsule PO 100 mg BID KRISTEN Administration Folic Acid 2 mg 12/24/24 09:00 12/24/24 10:43 Folic Acid 1 Mg Tablet PO 2 mg DAILY KRISTEN Administration Gabapentin 300 mg 12/24/24 09:00 12/24/24 15:38 Gabapentin 300 Mg Capsule PO 300 mg TID KRISTEN Administration Potassium Chloride/Sodium Chloride 20 meq in 1,000 mls @ 100 mls/hr 12/24/24 14:45 12/24/24 14:57 Sodium Chlor 0.9% + Kcl 20 Meq IV 100 mls/hr .Q10H KRISTEN Administration Morphine Sulfate 2 mg 12/24/24 09:30 12/24/24 15:39 Morphine 4 Mg/Ml Sdv 1 Ml IVP 2 mg Q4H PRN Administration SEVERE PAIN Pantoprazole Sodium 40 mg 12/24/24 09:00 12/24/24 10:[address] 40 Mg Tablet PO 40 mg DAILY KRISTEN Administration Vitamin D 1,000 unit 12/24/24 09:00 12/24/24 10:43 Cholecalciferol (Vitamin D3) 1,000 Unit Tablet PO 1,000 unit DAILY KRISTEN Administration [facility] Anesthesia Medical History (Updated 12/24/24 @ 07:11 by Víctor Kerr MD) HTN (hypertension) EDS (Dany-Danlos syndrome) Cognitive impairment Hypercholesterolemia Rheumatoid arthritis Osteoporosis Polychondritis Surgical History (Updated 12/24/24 @ 07:11 by Víctor Kerr MD) History of total right knee replacement Social History (Updated 12/24/24 @ 07:09 by Víctor Kerr MD) Smoking and tobacco/nicotine status: never used tobacco/nicotine Second hand smoke exposure: No Alcohol intake: never Substance/Drug Use: never Additional social history: CODE STATUS discussed with daughter Mary and son-in-law Fredrick in presence of patient who did not interject or ask any questions. Due to advanced age and limited quality of life as well as progressive dementia daughter has specified DNR status as discussed on 12/24/[address] Víctor Kerr MD Adopted: No Caregiver/support person: Yes Lives independently: No Housing: Assisted Living Facility Previous occupational history: Works as sales lady for 27 years Data Anesthesia 12/24/24 01:55 12/24/24 01:55 Short CBC 12/24/24 Range/Units 01:55 WBC 7.15 (3.29-11.43) 10^3/uL Hgb 12.00 (11.27-16.99) g/dL Hct 36.8 (36-47) % MCV 92.0 (85-98) fl Plt Count 182 (157-399) 10^3/cmm Neut % (Auto) 56.8 % Neut # (Auto) 4.07 (1.8-7.7) 10^3/uL BMP 12/24/24 01:55 Sodium 136 Potassium 4.1 Chloride 99 Carbon Dioxide 26 BUN 25 H Creatinine 0.7 Glucose 115 Calcium 9.7 Cardiac Enzymes 06/25/25 Range/Units 01:55 Creatine Kinase 191 (26-192) U/L Liver Function 12/24/24 Range/Units 01:55 Total Bilirubin 0.4 (0.15-1.2) mg/dL AST 28 (0-32) U/L ALT 20 (0-33) U/L Alkaline Phosphatase 87 (35-105) U/L Albumin 3.9 (3.5-5.2) g/dL Urine 12/24/24 Range/Units 03:33 Urine Color Yellow (Yellow) Urine Appearance Clear (CLEAR) Urine pH 5.5 (5-7) Ur Specific [place] 1.018 (1.005-1.030) Urine Protein Trace A (Negative) Urine Glucose (UA) Negative (Normal) Urine Ketones Negative (Negative) Urine Nitrate Negative (Negative) Urine Bilirubin Negative (Negative) Ur Leukocyte Esterase Negative (Negative) Urine RBC 0-2 (0-2) /hpf Urine WBC 0-5 (0-5) /hpf Blood Bank 12/24/24 02:35 Blood Type A Positive Rho(D) Type Rh positive Antibody Screen Negative Coags 12/24/24 01:55 PT 12.70 INR 0.89 APTT 23.1 L Cardiac Studies: Echocardiogram Ultrasound 08/05/20
--- NOTE | 2024-12-24 16:52 | W.PM.OPSUD ---
Surgery/Procedure H&P Update DATE OF PROCEDURE: December 24, 2024 DATE H&P PERFORMED: 12/24/24 H&P UPDATE INFORMATION: I have reviewed H&P completed within last 30 days, I have examined patient prior to procedure and No changes to prior documentation PREOP DIAGNOSIS: Right distal third femur shaft fracture with extension around prosthesis PRIMARY INDICATION FOR PROCEDURE: Right distal third femur shaft fracture with extension around superior femoral total knee prosthesis, with displacement and malrotation PLANNED PROCEDURE: Operation Date: 12/24/24 18:55 Proposed Procedures p Retrograde IM Nail Femur(Right) - Angel David DO
[2024-12-24] MEDS: sodium chloride 0.9% 1,000 ML 30 ML IV (17:22)
[2024-12-24] MEDS: ceFAZolin 2,000 mg SDV 2000 MG IVP (18:26)
[2024-12-24] MEDS: tranexamic acid 1,000 mg/10mL SDV 1000 MG IV (18:50)
[2024-12-24] MEDS: acetaminophen 1,000 MG/100 ML PIGGYBACK 400 MG IV (19:00)
--- NOTE | 2024-12-24 19:43 | SUR.OPER ---
1911 PT FAMILY UPDATED BY ARIANNA MEJIA
--- NOTE | 2024-12-24 20:36 | SUR.OPER ---
2034 UPDATED FAMILY VIA WAITING ROOM ALB
--- NOTE | 2024-12-24 20:43 | XR_ITS ---
WS: [id number] Exam: XR femur RT min 2V* [id number] Date/Time of Exam: 12/24/2024 8:44 PM Reason For Exam: OR PICS Intraoperative AP and lateral C arm images of the RIGHT femur are submitted. Images depict a long intramedullary goldie bridging a comminuted spiral fracture of the lower diaphysis of the of the femur. Fracture alignment is satisfactory for healing. A RIGHT total knee replacement is also noted.
--- NOTE | 2024-12-24 20:58 | P.BOP_ITS ---
Date of Procedure: 12/24/2024 Surgeon: Angel David DO Physical Therapist Aide(s): Carl David PA-C Procedure(s) performed: Right distal third femur shaft fracture with periprosthetic fracture involvement open reduction internal fixation with retrograde femur nail Findings of the procedure(s): Patient underwent procedure as planned without issues or complications taken recovery in stable condition Estimated blood loss: 125 mL Specimen(s) removed: Small free-floating butterfly fragment stripped of all periosteum removed, not sent for specimen Post-operative diagnosis: Right distal third femur shaft periprosthetic fracture
--- NOTE | 2024-12-24 21:00 | P.OP_ITS ---
Operative Report Date of procedure: December 24, 2024 Pre-op diagnosis: Right distal third femur shaft fracture with extension to supracondylar region around right total knee arthroplasty Post-op diagnosis: Same, with stable prosthesis Post-op findings: See operative report narrative Procedure done: Right distal third femur shaft open reduction internal fixation with retrograde nail Implants: Osmin SCN retrograde nail 10 mm x 360 mm 2x proximal 5 mm locking screws 4x distal 5 mm locking screws Specimens removed/disposition: Small free-floating fracture fragment stripped of all periosteum was removed as well as intra-articular, not sent for specimen Surgeon: Angel David DO Landfill Attendant: Carl David PA-C: STANLEY was necessary for assistance in this case with leg positioning, fracture reduction retraction and protection of neurovascular structures as well as assistance in implantation/fixation, wound closure and dressing application. Anesthesia: General Estimated blood loss: 125 mL None IV fluids: 1500 mL Urine output: 350 mL Complications: None Findings: See operative report narrative Condition: stable Disposition: floor Brief History: Patient is a pleasant demented 89-year-old female who sustained a ground-level fall and has a periprosthetic distal third femur shaft fracture around femur prosthesis right total knee prosthesis is stable in the fracture pattern, needs for enough distal bone stock for a retrograde nail. This is an open box prosthesis allowing for a retrograde nail. We talked about her treatment options in detail with patient's family as patient mental status was unable to consent for herself preoperatively. She was subsequently admitted by hospitalist team orthopedics consulted once medically optimized we detailed once again and up her treatment options far as nonoperative and operative mention recommendation for earlier mobilization and pain control would recommend surgical intervention for right femur open reduction internal fixation through shared decision making patient daughter elects to proceed with surgical intervention for stated procedure above. Patient 's family understands and agrees with current plan. All questions answered. Procedure: Patient was seen eval in the preoperative holding area. Consent was reviewed and signed with patient's daughters as they are her POA's she has dementia at baseline and confusion preoperatively. Correct extremities and subsequently marked final questions were answered. Patient was then seen evaluated by anesthesia once cleared for surgery patient was taken back to the operative suite patient was went to sleep on the hospital bed once appropriately anesthetized she was then transported onto flattop Toro table. Patient then underwent anesthesia per the AC department once prepped anesthetized patient was kept in supine position all bony prominences well-padded patient appropriate secured to the bed. At this point in time we then brought in fluoroscopic imaging to confirm satisfactory visualization and x-rays. Once this was done the right lower extremity was then prepped and draped in standard orthopedic fashion. Final timeout performed. Patient received appropriate perioperative antibiotics. At this point in time I attempted a closed reduction maneuver of the distal third femur shaft fracture as this was a spiral oblique fracture pattern with some comminution. I was able to pull out some length but still had significant fracture diastases and also unsuccessful alignment in the sagittal plane. As a result I plan for a small open incision laterally to clamp the fracture pattern and then subsequently proceed with retrograde nailing as previously planned. This point in time I then subsequently marked out the fracture site to the mid substance and made a small 6 centimeter incision directly lateral. Sharp scalpel incision was made through skin and subcutaneous tissue maintain exact hemostasis with electrocautery I then split the IT band longitudinally and then utilized a Ba elevator to split the vastus lateralis muscle fibers. I then came down directly over the fracture site hematoma was evacuated and fracture fragment was identified. At this point I made my hair or beauty salon assistant obtain traction and adjusted rotation and then while keeping the send utilized a Vera clamp which was placed down directly on bone and clamp the fracture in satisfactory alignment position maintaining her length. At this point in time I satisfied with the overall alignment and plan to proceed with retrograde nail. I then placed radiolucent triangle over the knee for better visualization and retrograde nailing. Sharp scalpel incision was made through the midline incision along the inferior pole patella directly over the previous total knee incision site full-thickness skin flaps made I dissected directly over the peritenon. At this point in time I percutaneously placed the guidepin in the intercondylar notch patient did have noticeable flexion of the implant causing by standard starting point to being slightly posterior then in standard just given by the limitations of the prosthesis. At this point time I subsequently centered the guidepin in satisfactory position both AP and lateral positioning once again slightly posterior to baseline just due to the flexion of the implant. Once this was advanced up into the fracture site and good alignment confirmed on multiple orthogonal images I then utilized the opening reamer. Once opening reamer was placed a ball-tipped guidewire was placed just above the lesser trochanter took appropriate measurements which was 360 mm. At this point in time I then subsequently while once again maintaining reduction with [place] clamp assistance from my hair or beauty salon assistant I then subsequently sequentially reamed up to an 11.5 mm reamer with watching this under fluoroscopic imaging throughout with care to not have any perforations anteriorly. Once satisfied with this I then subsequently placed the 10 mm x 360 mm [place] retrograde SCN nail this was advanced up to satisfactory alignment and positioning. Given the slightly posterior starting point this did have slight comminution at the fracture site but was then intramedullary canal and no potting on the anterior cortex proximally this overall was in good alignment position once or retrograde goldie was in place with satisfactory position for distal femur fracture healing. Prosthesis remained stable throughout. At this point in time I then subsequently placed 4 additional locking screws distally utilizing the targeting guide. These were subsequently drilled measured and appropriate length screws were placed for all 4 the screws once again I made sure I impacted proximally e nough to have the fourth the distalmost screw missed the femur prosthesis PEG sites. These all had satisfactory fixation of note patient was noted of having soft bone during the drilling process. Next satisfied with the distal fixation I turned my attention proximally proximally I then subsequently had x-ray performed perfect [place] freehand technique I then subsequently had perfect [place] sharp scalpel incision was made of a small 2 cm incision Sharp scalpel incision was made through skin only switch to blunt dissection through subcutaneous tissue and through the muscle bellies directly onto bone. I then bluntly cleared off periosteum with a Ba elevator and sponge. Once this was completed I then utilizing perfect [place] freehand technique subsequently drilled and placed 2 additional proximal locking 5 mm screws 35 mm in length each. These were subsequently drilled measured appropriate lengths were then placed as stated. These were done under fluoroscopic guidance and confirmed to being satisfactory position on AP and lateral films interlocking the nail. At this point time this completed the construct. Vera clamps removed patient of note did have on x-ray in the lateral dated anterior fracture fragment that was just anterior to the prosthesis concerning for being intra-articular through my lateral incision I was able to grab this with a Juan clamp and remove this as this was stripped of all periosteum and was removed and not sent for specimen. At this point time this completed the fracture fixation I then subsequently thoroughly irrigated the wound. The lateral incision was closed with strata fix 0 Vicryl 2-0 Vicryl and ngozi percutaneous screw sites were then closed with ngozi and the distal anterior incision as well as the proximal incision was closed with deep 0 Vicryl suture closing the split in the patellar tendon and 2-0 Vicryl for subcutaneous tissue and ngozi for the skin. This was then dressed with Xeroform 4 x 4's ABDs Curlex soft roll and a Oh wrap. Patient was then awakened from anesthesia and taken recovery in stable condition Disposition: Patient taken recovery in stable condition will return to floor postoperatively would recommend postoperative DVT prophylaxis will have patient toe-touch weightbearing to the right lower extremity. Follow-up in 2 weeks. Patient daughters understands and agrees with current plan. All questions answered.
--- NOTE | 2024-12-24 21:07 | XRR_ITS ---
PROCEDURE INFORMATION: Exam: XR Right Femur Exam date and time: 12/24/2024 9:10 PM Age: 89 years old Clinical indication: Screening exam; Post op; Prior surgery; Surgery date: Post-operative (0-2 days); Surgery type: Orif; Additional info: S/P R femur orif TECHNIQUE: Imaging protocol: Radiologic exam of the right femur. Views: 2 views. COMPARISON: OT XR femur RT min 2V* [id number] 12/24/2024 8:22 PM FINDINGS: Bones/joints: Postsurgical changes related to intramedullary nail placement to the right femur with proximal and distal stabilizing screws. 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 There is a oblique fracture through the distal femoral diaphysis with the fracture fragments seen displaced medially 7 mm. Mild degenerative changes of the right hip joint without dislocation. Overall the hardware of the right femur and the knee joint appears intact. No dislocation. Soft tissues: Postsurgical changes of the soft tissues. XR/XR femur RT min 2V* [id number] IMPRESSION: As above.
--- NOTE | 2024-12-24 21:21 | PM.PACU ---
PACU note Narrative: Patient is a 89-year-old female just underwent a right femur ORIF. Exam limited due to patient's dementia. pt transferred to PACU in stable condition. Dressing is dry. Patient is somnolent but arousable. Distal pulses are palpable toes are warm and well-perfused. Cap refill is normal and under 2 seconds. Pain is controlled. Exam: somnolent, arousable Disposition: back to floor
--- NOTE | 2024-12-24 21:45 | ANE.PACU2 ---
Inpatient post-anesthesia follow up: Vital signs: Temperature 98.2 F Pulse Rate 76 Respiratory Rate 17 Blood Pressure 107/57 Pulse Oximetry 97 Oxygen Delivery Me thod Nasal Cannula Oxygen Flow Rate 5 Fraction of Inspir ed Oxygen
--- NOTE | 2024-12-24 21:50 | ANE.PACU2 ---
Inpatient post-anesthesia follow up: Airway intact: Yes Vital signs: Temperature 98.2 F Pulse Rate 76 Respiratory Rate 17 Blood Pressure 107/57 Pulse Oximetry 97 Oxygen Delivery Me thod Nasal Cannula Oxygen Flow Rate 5 Fraction of Inspir ed Oxygen Hydration adequate: Yes Nausea and vomiting: No Pain level: 1 Mental status: Baseline
[2024-12-25] VITALS (7 sets, daily range): BP systolic 104–108; BP diastolic 55–64; PULSE 75–89; RESP 16–17; TEMP 36.3–37.2; O2SAT 90–97
[2024-12-25] MEDS: sodium chlor 0.9% + KCl 20 mEq 20 MEQ/1,000 ML BAG 100 MEQ IV ×3 (00:32→20:32)
[2024-12-25] MEDS: tranexamic acid 1,000 MG/100 ML PREMIX 600 MG IV (03:04)
[2024-12-25] MEDS: ceFAZolin 2,000 MG in sodium chloride 0.9% (plus) 50 ML 100 MG IV ×3 (03:05→18:05)
[2024-12-25 06:07] LABS: Basophils % 0.1 %; Hematocrit 29.5 % (36-47); Lymphocytes # 0.7 10^3/uL (0.8-4.8); Lymphocytes % 6.2 %; Mean Corpuscular HGB Conc 31.2 g/dL (30-55); Mean Corpuscular Hemoglobin 29.6 pg (27-33); Mean Corpuscular Volume 94.9 fl (85-98); Mean Platelet Volume 11.9 fL (7.4-10.4); Monocytes # 0.5 10^3/uL (0.2-0.9); Monocytes % 4.6 %; Neutrophils # 9.37 10^3/uL (1.8-7.7); Neutrophils % 88.7 %; Nucleated Red Blood Cells % 0 %; Platelet Count 167 10^3/cmm (157-399); Red Blood Count 3.11 10^6/uL (3.85-5.65); Red Cell Distribution Width 14.8 % (12.1-15.1); White Blood Count 10.57 10^3/uL (3.29-11.43)
[2024-12-25 06:28] LABS: Alanine Aminotransferase 14 U/L (0-33); Albumin Level 3.1 g/dL (3.5-5.2); Alkaline Phosphatase 75 U/L (35-105); Anion Gap 14.5 (5-19); Aspartate Amino Transferase 23 U/L (0-32); Blood Urea Nitrogen 17 mg/dL (8-23); Calcium 8.5 mg/dL (8.5-10.5); Carbon Dioxide 24 mmol/L (22-29); Chloride 102 mmol/L (98-107); Globulin 2.8 g/dL (1.3-4.6); Glucose 153 mg/dL (65-115); Magnesium 2.1 mg/dL (1.7-2.3); Osmolality Calculated 287 mOsm/kg (285-295); Phosphorus 3.8 mg/dL (2.5-4.5); Potassium 4.5 mmol/L (3.5-5.1); Sodium 136 mmol/L (136-145); Total Bilirubin 0.3 mg/dL (0.15-1.2); Total Protein 5.9 g/dL (6.6-8.7)
[2024-12-25 06:29] LABS: Chol HDL Ratio 5.98 mg/dL (0.0-4.40); Cholesterol 275 mg/dL (0-200); HDL Cholesterol 46 mg/dL (60-100); LDL Cholesterol Calculated 205 mg/dL (50-129); LDL HDL Ratio 4.46 RATIO (0.00-3.22); Triglycerides 120 mg/dL (0-150)
[2024-12-25] MEDS: gabapentin 300 mg Capsule PO ×3 (08:27→20:33)
[2024-12-25] MEDS: docusate sodium 100 mg Capsule PO ×2 (08:27→18:05)
[2024-12-25] MEDS: cholecalciferol (vitamin D3) 1,000 unit Tablet 1000 UNIT PO (08:27)
[2024-12-25] MEDS: magnesium oxide 400 mg tablet PO (08:27)
[2024-12-25] MEDS: folic acid 1 mg Tablet 2 MG PO (08:27)
[2024-12-25] MEDS: CELEcoxib 200 mg Capsule PO (08:27)
[2024-12-25] MEDS: pantoprazole DR 40 mg Tablet PO (08:27)
[2024-12-25] MEDS: multivitamin therapeutic Tablet 1 TAB PO (08:28)
[2024-12-25] MEDS: BuSPIRONE 10 mg Tablet 5 MG PO ×2 (08:28→18:04)
[2024-12-25] MEDS: iron polysaccharide complex 150 mg Capsule PO ×2 (08:28→18:07)
[2024-12-25] MEDS: mupirocin oint 22 gm 1 APPLIC NASAL ×2 (08:31→18:05)
[2024-12-25] MEDS: chlorhexidine gluconate 0.12% Btl 473 mL 30 ML MUCOUS MEM ×3 (08:31→20:33)
[2024-12-25] MEDS: enoxaparin 30 mg/0.3 mL Syringe SUBCUT (08:31)
[2024-12-25] MEDS: acetaminophen 325 mg Tablet PO (08:49)
--- NOTE | 2024-12-25 12:25 | P.PN_ITS ---
Subjective 2 Subjective: Underwent ORIF yesterday. Currently. Seen sitting up in chair today. Seen with family at bedside. Denies any new complaints. Vitals/I&O/Wt Last Vital Signs Temp 98.2 F 12/25/24 08:00 Pulse 76 12/25/24 08:00 Resp 17 12/25/24 08:00 BP 107/57 12/25/24 08:00 Pulse Ox 97 12/25/24 08:00 O2 Del Method Nasal Cannula 12/25/24 08:00 O2 Flow Rate 5 12/25/24 08:00 12/24/24 12/25/24 12/25/24 22:59 06:59 14:59 Intake Total 1840 / 1840 1390 / 3230 1290 / 1290 Output Total 1475 / 1475 Balance 365 / 365 1390 / 1755 1290 / 1290 Weight last 48 hrs Weight 76.204 kg Weight 78.075 kg Weight 70.307 kg Physical Exam 2 Narrative: General well-developed well-nourished female in no acute cardiopulmonary distress CV regular rate and rhythm with a 4/6 systolic ejection murmur best heard at the left sternal border Lungs clear to auscultation bilaterally Abdomen positive bowel sounds soft nontender Neuro patient is able to move her left foot and toes easily the right side she is able to wiggle but has pain. Vascular left dorsal pedal pulses 1+ right side is trace to 1 coloration of the foot is intact and is still warm on the right foot Urinary Catheter Management: Lucero: Cath Placed During This Visit: yes Reason for Continuing Indwelling Catheter: Required Immobilization for Trauma or Surgery or Anesthesia Urinary Catheter Date of Insertion: 12/24/24 Urinary Catheter Time of Insertion: 03:20 Data 12/25/24 05:24 12/25/24 05:24 A&P Assessment and plan (1) Displaced spiral fracture of shaft of right femur: Post-ORIF on 12/24. Monitor hemoglobin. Physical therapy. Anticoagulation and wound care as per orthopedic team. (2) Cognitive and behavioral changes: Continue with home BuSpar gabapentin, Ativan, Seroquel and Zoloft. Patient is from [facility]. (3) Dementia: As above pleasantly demented Plan DNR/DNI Regular diet Protonix for PUD prophylaxis Lovenox for DVT prophylaxis PDMP PDMP Reviewed: Not Reviewed Attestations 2 Medical Necessity Statement*: Requested hospitalization for post ORIF care in a patient with concerns for significant dementia Diagnoses Displaced spiral fracture of shaft of right femur S72.341A Cognitive and behavioral changes R41.89; R46.89 Dementia F03.90
--- NOTE | 2024-12-25 15:18 | P.PN_ITS ---
Subjective 2 Subjective: Patient seen and examined today with daughter at bedside patient much more alert and responsive. Pain controlled. Vitals/I&O/Wt Last Vital Signs Temp 98.2 F 12/25/24 08:00 Pulse 76 12/25/24 08:00 Resp 17 12/25/24 08:00 BP 107/57 12/25/24 08:00 Pulse Ox 97 12/25/24 08:00 O2 Del Method Nasal Cannula 12/25/24 08:00 O2 Flow Rate 5 12/25/24 08:00 12/25/24 12/25/24 12/25/24 06:59 14:59 22:59 Intake Total 1390 / 3230 1290 / 1290 Balance 1390 / 1755 1290 / 1290 Weight last 48 hrs Weight 168 lb Weight 172 lb 2 oz Weight 155 lb Physical Exam 2 Narrative: Examination of the right lower extremity: Examination right lower extremity patient has good clinical alignment she is able to wiggle toes as well as subtle plantarflexion and dorsiflexion of ankle distal pulses are palpable toes warm well-perfused. Calf soft and nontender no range of motion of the knee was tested she is able to tolerate logroll examination with no significant pain or discomfort. Normal-appearing postoperative swelling appreciated, compartments are soft and compressible. Urinary Catheter Management: Lucero: Cath Placed During This Visit: yes Reason for Continuing Indwelling Catheter: Required Immobilization for Trauma or Surgery or Anesthesia Urinary Catheter Date of Insertion: 12/24/24 Urinary Catheter Time of Insertion: 03:20 Data 12/26/24 05:57 12/26/24 05:57 Other Labs: AM labs 12/25/2024 listed below: WBC 10.57 Hemoglobin 9.2 Creatinine 0.8 Xray Ortho: Radiologist's impression: Ordering Provider/Ordering MD: Angel David Date of Service: 12/24/24 Procedure(s): XR femur RT min 2V* [id number] Accession Number(s): [id number] Report Number: [id number] PROCEDURE INFORMATION: Exam: XR Right Femur Exam date and time: 12/24/2024 9:10 PM Age: 89 years old Clinical indication: Screening exam; Post op; Prior surgery; Surgery date: Post-operative (0-2 days); Surgery type: Orif; Additional info: S/P R femur orif TECHNIQUE: Imaging protocol: Radiologic exam of the right femur. Views: 2 views. COMPARISON: OT XR femur RT min 2V* [id number] 12/24/2024 8:22 PM FINDINGS: Bones/joints: Postsurgical changes related to intramedullary nail placement to the right femur with proximal and distal stabilizing screws. 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 There is a oblique fracture through the distal femoral diaphysis with the fracture fragments seen displaced medially 7 mm. Mild degenerative changes of the right hip joint without dislocation. Overall the hardware of the right femur and the knee joint appears intact. No dislocation. Soft tissues: Postsurgical changes of the soft tissues. XR/XR femur RT min 2V* [id number] IMPRESSION: As above. Ordering Provider/Ordering MD: Angel David Date of Service: 12/24/24 Procedure(s): XR femur RT min 2V* [id number] Accession Number(s): [id number] Report Number: [id number] WS: [id number] Exam: XR femur RT min 2V* [id number] Date/Time of Exam: 12/24/2024 8:44 PM Reason For Exam: OR PICS Intraoperative AP and lateral C arm images of the RIGHT femur are submitted. Images depict a long intramedullary goldie bridging a comminuted spiral fracture of the lower diaphysis of the of the femur. Fracture alignment is satisfactory for healing. A RIGHT total knee replacement is also noted. A&P Assessment and plan (1) Displaced spiral fracture of shaft of right femur: Plan Right femur ORIF postop POD 1 Internal medicine is primary Labs reviewed, imaging reviewed Keep dressing clean dry and intact Okay to take down dressings after 72 hours clean incisions with warm soapy water and redress with sterile dry dressings No baths or soaks Toe-touch weightbearing to operative extremity PT/OT Encourage knee range of motion as tolerated Ice and elevate as needed for pain and swelling pain medication as prescribed antinausea medication as needed DVT prophylaxis per primary Recommend supplement with Citracal/vitamin D for bone health and healing Stool softener as needed Follow-up with Dr. David in the office in 2 weeks Case management on board working for discharge to rehab facility upon discharge, daughter present at bedside Patient at this point in time patient is recovering well daughter at bedside patient appears to be improved this morning much more alert and responsive. Pain controlled. Orthopedics will continue to follow plan will be for a 2-week follow-up visit upon discharge. Working on rehab facility discharge placement. Patient daughter understands and agrees with current plan. All questions answered. PDMP PDMP Reviewed: Not Reviewed Attestations 2 Medical Necessity Statement*: Ongoing care status post right femur ORIF Coding Level of Care Code Acute Code for Chg Fwd Diagnoses Displaced spiral fracture of shaft of right femur S72.341A Time Spent (min) 10
[2024-12-25] MEDS: HYDROcodone-acetaminophen 5-325 mg Tablet 1 TAB PO (17:45)
[2024-12-25] MEDS: sertraline 100 mg Tablet PO (20:33)
[2024-12-25] MEDS: quetiapine 25 mg Tablet 50 MG PO (20:33)
[2024-12-26 01:00] VITALS: BP 116/62; PULSE 85; RESP 15; TEMP 36.8; O2SAT 95
[2024-12-26] MEDS: sodium chlor 0.9% + KCl 20 mEq 20 MEQ/1,000 ML BAG 100 MEQ IV (05:16)
[2024-12-26 05:27] VITALS: BP 108/59; PULSE 92; RESP 17; TEMP 36.7; O2SAT 92
[2024-12-26 06:38] LABS: Basophils % 0.4 %; Eosinophils # 0.2 10^3/uL (0.0-0.8); Eosinophils % 2.9 %; Hematocrit 25.6 % (36-47); Lymphocytes # 1.4 10^3/uL (0.8-4.8); Lymphocytes % 18.4 %; Mean Corpuscular HGB Conc 31.3 g/dL (30-55); Mean Corpuscular Hemoglobin 30.2 pg (27-33); Mean Corpuscular Volume 96.6 fl (85-98); Mean Platelet Volume 11.9 fL (7.4-10.4); Monocytes # 0.7 10^3/uL (0.2-0.9); Monocytes % 9.7 %; Neutrophils # 5.14 10^3/uL (1.8-7.7); Neutrophils % 68.2 %; Nucleated Red Blood Cells % 0 %; Platelet Count 147 10^3/cmm (157-399); Red Blood Count 2.65 10^6/uL (3.85-5.65); White Blood Count 7.54 10^3/uL (3.29-11.43)
[2024-12-26 07:10] LABS: Alanine Aminotransferase 6 U/L (0-33); Albumin Level 3.1 g/dL (3.5-5.2); Alkaline Phosphatase 67 U/L (35-105); Anion Gap 11.8 (5-19); Aspartate Amino Transferase 22 U/L (0-32); Blood Urea Nitrogen 19 mg/dL (8-23); Calcium 8.5 mg/dL (8.5-10.5); Carbon Dioxide 25 mmol/L (22-29); Chloride 109 mmol/L (98-107); Globulin 2.5 g/dL (1.3-4.6); Glucose 93 mg/dL (65-115); Magnesium 2.1 mg/dL (1.7-2.3); Osmolality Calculated 294 mOsm/kg (285-295); Phosphorus 2.6 mg/dL (2.5-4.5); Potassium 4.8 mmol/L (3.5-5.1); Sodium 141 mmol/L (136-145); Total Bilirubin 0.4 mg/dL (0.15-1.2); Total Protein 5.6 g/dL (6.6-8.7)
[2024-12-26 07:36] VITALS: BP 120/77; PULSE 113; RESP 18; TEMP 37.3; O2SAT 92
[2024-12-26] MEDS: cholecalciferol (vitamin D3) 1,000 unit Tablet 1000 UNIT PO (08:13)
[2024-12-26] MEDS: HYDROcodone-acetaminophen 5-325 mg Tablet 1 TAB PO ×2 (08:13→13:05)
[2024-12-26] MEDS: multivitamin therapeutic Tablet 1 TAB PO (08:13)
[2024-12-26] MEDS: pantoprazole DR 40 mg Tablet PO (08:13)
[2024-12-26] MEDS: gabapentin 300 mg Capsule PO (08:13)
[2024-12-26] MEDS: BuSPIRONE 10 mg Tablet 5 MG PO (08:13)
[2024-12-26] MEDS: magnesium oxide 400 mg tablet PO (08:13)
[2024-12-26] MEDS: CELEcoxib 200 mg Capsule PO (08:13)
[2024-12-26] MEDS: iron polysaccharide complex 150 mg Capsule PO (08:14)
[2024-12-26] MEDS: docusate sodium 100 mg Capsule PO (08:14)
[2024-12-26] MEDS: folic acid 1 mg Tablet 2 MG PO (08:14)
[2024-12-26] MEDS: enoxaparin 30 mg/0.3 mL Syringe SUBCUT (08:15)
[2024-12-26] MEDS: chlorhexidine gluconate 0.12% Btl 473 mL 30 ML MUCOUS MEM ×2 (08:15→13:04)
[2024-12-26] MEDS: mupirocin oint 22 gm 1 APPLIC NASAL (08:15)
[2024-12-26 08:47] VITALS: PULSE 109; RESP 18; O2SAT 93
[2024-12-26 10:52] LABS: SARS Covid-2 Antigen Negative (Negative)
[2024-12-26 10:57] VITALS: BP 111/62; PULSE 81; RESP 16; TEMP 36.7; O2SAT 95
--- NOTE | 2024-12-26 12:03 | P.DS_ITS ---
Discharge Providers Date of Admission: 12/24/24 03:59 Date of Discharge: December 26, 2024 Attending Provider at Admission: Víctor Kerr MD Attending Provider at Discharge: Axel Rolon MD Consults: Orthopedics: Dr. David Primary Care Provider: Khris Duncan MD Diagnoses at Discharge Discharge Diagnosis (1) Displaced spiral fracture of shaft of right femur: Status: Acute (2) Cognitive and behavioral changes: Status: Acute (3) Dementia: Status: Acute Reason for Visit Reason for Visit: fall Brief History: History as per HPI: Vandana Christie is a 89 year old female who was found down at [facility] where she resides. She does not recall her fall or being found down. Patient does know that she is here because of her leg but did not know what kind of facility this was or the name of the facility. She does not know her age or the date or year. She thought she was 85. Currently patient is pleasantly demented and not a good historian. She is companied by her daughter Mary and son-in-law Fredrick. Patient was staying at the [facility] assisted living until she no longer recognized her staff and locked the RNs out. She was kicking at people and tried to pull the screen out of the window to escape. Patient had become paranoid and afraid of men. She escaped out the door wants and so 3 weeks ago was transferred over to [place]. She is on medications which have made a tremendous improvement. She is now pleasantly demented Daughter reports patient has never had SC, stroke or lung disease. She has never been a smoker user of alcohol or drugs. She was a sales lady until age 67. She is now reasonably happy with the medication changes. Dementia started 8 years ago. She does not always recognize her daughter and son-in-law Hospital Course Hospital Course Patient was admitted to the hospital further evaluation and management of displaced spiral fracture of right femur shaft. Orthopedics was consulted and he underwent ORIF on 12/24. Patient's hospitalization were otherwise unremarkable and she worked well with physical therapy. [facility]. Physical Exam Narrative: General well-developed well-nourished female in no acute cardiopulmonary distress CV regular rate and rhythm with a 4/6 systolic ejection murmur best heard at the left sternal border Lungs clear to auscultation bilaterally Abdomen positive bowel sounds soft nontender Neuro patient is able to move her left foot and toes easily the right side she is able to wiggle but has pain. Vascular left dorsal pedal pulses 1+ right side is trace to 1 coloration of the foot is intact and is still warm on the right foot Urinary Catheter Management: Lucero: Cath Placed During This Visit: yes Reason for Continuing Indwelling Catheter: Required Immobilization for Trauma or Surgery or Anesthesia Urinary Catheter Date of Insertion: 12/24/24 Urinary Catheter Time of Insertion: 03:20 Discharge Data Studies Completed and Pending Completed Studies During Hospitalization Category Date Time Status CT femur RT wo con* [id number] Stat Cat Scan 12/24/24 02:[address] head wo con* [id number] Stat Cat Scan 12/24/24 02:03 Completed XR chest 1V portable [id number] Stat Exams 12/24/24 02:03 Completed XR femur RT min 2V* [id number] Routine Exams 12/24/24 20:43 Completed XR femur RT min 2V* [id number] Routine Exams 12/24/24 21:07 Completed XR femur RT min 2V* [id number] Stat Exams 12/24/24 02:03 Completed XR pelvis 1-2V* [id number] Stat Exams 12/24/24 02:03 Completed Pending at discharge Category Date Time Status Complete Blood Count w/Auto AM LABS Lab 12/27/24 04:00 Ordered Comprehensive Metabolic Panel AM LABS Lab 12/27/24 04:00 Ordered Magnesium AM LABS Lab 12/27/24 04:00 Ordered Phosphorus AM LABS Lab 12/27/24 04:00 Ordered Type and Screen Routine Lab 12/24/24 18:05 Uncollected Radiology Impressions Chest X-Ray 12/24/24 02:03 IMPRESSION: 1. Mild nonspecific opacity left base possibly atelectasis, aspiration or contusion. 2. Otherwise, no acute process identified. Head CT 12/24/24 02:03 IMPRESSION: 1. No intracranial bleed or depressed calvarial fracture identified. 2. Diffuse age-related atrophy and small vessel ischemic change. Pelvis X-Ray 12/24/24 02:03 IMPRESSION: 1. No acute bony process is identified. 2. Post-operative change as described. Femur CT 12/24/24 02:46 IMPRESSION: 1. Acute spiral fracture distal femur as described. 2. Post-operative change as described. 3. Moderate suprapatellar effusion versus hemarthrosis. Femur X-Ray 12/24/24 21:07 IMPRESSION: As above. Laboratory Results WBC 7.54 10^3/uL (3.29-11.43) 12/26/24 05:57 RBC 2.65 10^6/uL (3.85-5.65) L 12/26/24 05:57 Hgb 8.00 g/dL (11.27-16.99) L 12/26/24 05:57 Hct 25.6 % (36-47) L 12/26/24 05:57 MCV 96.6 fl (85-98) 12/26/24 05:57 MCH 30.2 pg (27-33) 12/26/24 05:57 MCHC 31.3 g/dL (30-55) 12/26/24 05:57 RDW 15.0 % (12.1-15.1) 12/26/24 05:57 Plt Count 147 10^3/cmm (157-399) L 12/26/24 05:57 MPV 11.9 fL (7.4-10.4) H 12/26/24 05:57 Neut % (Auto) 68.2 % 12/26/24 05:57 Lymph % (Auto) 18.4 % 12/26/24 05:57 Trigg % (Auto) 9.7 % 12/26/24 05:57 Eos % (Auto) 2.9 % 12/26/24 05:57 Baso % (Auto) 0.4 % 12/26/24 05:57 Neut # (Auto) 5.14 10^3/uL (1.8-7.7) 12/26/24 05:57 Lymph # (Auto) 1.4 10^3/uL (0.8-4.8) 12/26/24 05:57 Trigg # (Auto) 0.7 10^3/uL (0.2-0.9) 12/26/24 05:57 Eos # (Auto) 0.2 10^3/uL (0.0-0.8) 12/26/24 05:57 Baso # (Auto) 0.0 10^3/uL (0.0-0.1) 12/26/24 05:57 Nucleated RBC % (auto) 0 % 12/26/24 05:57 Nucleated RBCs # 0.0 /100WBC 12/26/24 05:57 PT 12.70 SECONDS (12.1-14.9) 12/24/24 01:55 INR 0.89 (0.8-1.2) 12/24/24 01:55 APTT 23.1 SECONDS (23.9-36.7) L 12/24/24 01:55 Sodium 141 mmol/L (136-145) 12/26/24 05:57 Potassium 4.8 mmol/L (3.5-5.1) 12/26/24 05:57 Chloride 109 mmol/L (98-107) H 12/26/24 05:57 Carbon Dioxide 25 mmol/L (22-29) 12/26/24 05:57 Anion Gap 11.8 (5-19) 12/26/24 05:57 BUN 19 mg/dL (8-23) 12/26/24 05:57 Creatinine 0.6 mg/dL (0.5-0.9) 12/26/24 05:57 GFR Calculation Not Reportable 12/26/24 05:57 Glucose 93 mg/dL (65-115) 12/26/24 05:57 Estimat Average Glucose 131 12/24/24 10:53 Hemoglobin A1c 6.2 % (4.0-6.0) H 12/24/24 10:53 Calculated Osmolality 294 mOsm/kg (285-295) 12/26/24 05:57 Calcium 8.5 mg/dL (8.5-10.5) 12/26/24 05:57 Phosphorus 2.6 mg/dL (2.5-4.5) 12/26/24 05:57 Magnesium 2.1 mg/dL (1.7-2.3) 12/26/24 05:57 Total Bilirubin 0.4 mg/dL (0.15-1.2) 12/26/24 05:57 AST 22 U/L (0-32) 12/26/24 05:57 ALT 6 U/L (0-33) 12/26/24 05:57 Alkaline Phosphatase 67 U/L (35-105) 12/26/24 05:57 Creatine Kinase 191 U/L (26-192) 12/24/24 01:55 Total Protein 5.6 g/dL (6.6-8.7) L 12/26/24 05:57 Albumin 3.1 g/dL (3.5-5.2) L 12/26/24 05:57 Globulin 2.5 g/dL (1.3-4.6) 12/26/24 05:57 Triglycerides 120 mg/dL (0-150) 12/25/24 05:24 Cholesterol 275 mg/dL (0-200) H 12/25/24 05:24 LDL Cholesterol, Calc 205 mg/dL (50-129) H 12/25/24 05:24 HDL Cholesterol 46 mg/dL (60-100) L 12/25/24 05:24 LDL/HDL Ratio 4.46 RATIO (0.00-3.22) H 12/25/24 05:24 Cholesterol/HDL Ratio 5.98 mg/dL (0.0-4.40) H 12/25/24 05:24 Procalcitonin 0.05 ng/mL (0-0.5) 12/24/24 10:53 TSH 2.75 uIU/mL (0.27-4.20) 12/24/24 10:53 Urine Color Yellow (Yellow) 12/24/24 03:33 Urine Appearance Clear (CLEAR) 12/24/24 03:33 Urine pH 5.5 (5-7) 12/24/24 03:33 Ur Specific [place] 1.018 (1.005-1.030) 12/24/24 03:33 Urine Protein Trace (Negative) A 12/24/24 03:33 Urine Glucose (UA) Negative (Normal) 12/24/24 03:33 Urine Ketones Negative (Negative) 12/24/24 03:33 Urine Blood Negative (Negative) 12/24/24 03:33 Urine Nitrate Negative (Negative) 12/24/24 03:33 Urine Bilirubin Negative (Negative) 12/24/24 03:33 Urine Urobilinogen 1.0 mg/dL (Negative) 12/24/24 03:33 Ur Leukocyte Esterase Negative (Negative) 12/24/24 03:33 Urine RBC 0-2 /hpf (0-2) 12/24/24 03:33 Urine WBC 0-5 /hpf (0-5) 12/24/24 03:33 Ur Squamous Epith Cells 0-5 /hpf (0-5) 12/24/24 03:33 Amorphous Sediment Not Reportable 12/24/24 03:33 Urine Bacteria None seen /hpf (NONE) 12/24/24 03:33 Hyaline Casts 2.05 /lpf 12/24/24 03:33 SARS-CoV-2 Ag (Rapid) Negative (Negative) 12/26/24 09:29 Blood Type A Positive 12/24/24 02:35 Rho(D) Type Rh positive 12/24/24 02:35 Antibody Screen Negative 12/24/24 02:35 Vitals Last Vital Signs Temp 98.1 F 12/26/24 10:57 Pulse 81 12/26/24 10:57 Resp 16 12/26/24 10:57 BP 111/62 12/26/24 10:57 Pulse Ox 95 12/26/24 10:57 O2 Del Method Room Air 12/26/24 10:57 O2 Flow Rate 2 12/26/24 08:47 Discharge Plan Discharge Patient Disposition: Xfer SNF Condition: Stable Prescriptions: Continued acetaminophen [Tylenol] 325 mg tablet 325 - 650 mg PO QID PRN (Reason: Pain) bisacodyl 10 mg suppository 10 mg VA DAILY PRN (Reason: Constipation) sodium phosphates 19-7 gram/118 mL enema 118 ml VA DAILY PRN (Reason: Constipation) magnesium hydroxide [Milk of Magnesia] 400 mg/5 mL suspension 5 ml PO DAILY PRN (Reason: Constipation) Culturelle 10 billion cell capsule 1 cap PO DAILY PRN (Reason: Constipation) Artificial Tears(glycerin-peg) 1-0.3 % drops 2 drop ophthalmic (eye) DAILY PRN (Reason: Dry Eye(S)) (DME) cpap supplies See Rx Instructions .Route .MEDSUPPLY Qty: 1 0RF Rx Instructions: As directed celecoxib 200 mg capsule 200 mg PO DAILY Qty: 90 3RF pantoprazole 40 mg tablet,delayed release (DR/EC) 40 mg PO DAILY Qty: 30 2RF folic acid 1 mg tablet 2 mg PO DAILY Qty: 90 3RF methotrexate sodium 2.5 mg tablet 10 mg PO .weekly buspirone 5 mg tablet 5 mg PO BID sertraline 100 mg tablet 100 mg PO BEDTIME lorazepam 0.5 mg tablet 0.5 mg PO .@12PM lorazepam 0.5 mg tablet 0.5 mg PO TID PRN (Reason: Anxiety) hydroxyzine HCl 25 mg tablet 25 mg PO BEDTIME quetiapine 50 mg tablet 50 mg PO BEDTIME MDD agitation/anxiety Discharge Orders: Discharge Order (Routine); Ordered 12/26/24 Ordered By: Axel Rolon Referrals: [facility] [Outside] Khris Duncan MD [Primary Care Provider, Family Practice] Angel David DO [Physician, Orthopedics] Referral Note: We have notified your physician's clinic of the need for a follow-up appointment to be scheduled. If you have not heard from them within the next 2 business days, please call them directly. Discharge Diet: Usual diet and Cardiac Discharge Activity: Resume usual activity and Increase activity as tolerated Patient Instructions: Acute Wound Care (DC), Opioid Safety, Post Anesthesia Care, Patient Portal & Kristen Instructions Discharge Attestations Time Spent in Discharge Care*: greater than 30 min Specific Discharge Activities: educating and/or supporting family/caregiver, discussing with pcp/other providers, discussing with case management coordinator/social workers/dc planners, documenting/other paperwork and evaluating patient/reviewing data Status at Discharge: Cognitive status at discharge: mildly impaired cognition , Behavioral status at discharge: cooperative , Functional status at discharge: uses cane/walker , Quality Metrics Clinical Quality Measures [ No reported AMI, CVA or VTE this stay] Coding Level of Care Code 34997 Total time (in minutes) for Discharge: 65 Diagnoses Displaced spiral fracture of shaft of right femur S72.341A Cognitive and behavioral changes R41.89; R46.89 Dementia F03.90
--- NOTE | 2024-12-26 13:22 | PC.SOCIAL ---
IMM Update pg 2 of IMM updated and reviewed w/ patients daughter. Copy provided and copy dated, initialed and placed in chart.
--- NOTE | 2024-12-26 15:30 | PC.NURSE ---
Patient was d/c'd prior to Dr. Joann castro. He provided a verbal order for Lovenox 30 mg subcutaneous daily for 35 days. I called and provided the verbal order to Cody on behalf of [facility] for Lovenox and attempted to call [facility] x3 to inform them of changes in medication, f/u appointment, and instructions specific to the procedure. I will continue to attempt to reach them.
--- NOTE | 2024-12-26 15:31 | PC.OT ---
OT TREATMENT HELD TODAY DUE TO SCHEDULED PATIENT D/C
--- NOTE | 2024-12-26 15:42 | PM.MISC ---
Miscellaneous Note Purpose of Documentation: Orthopedic note update: Patient was discharged prior to me being able to see patient. Reviewing of labs as well as from visit with daughter yesterday patient is stable from an orthopedic standpoint. I did place a discharge instructions in patient's chart as well as verified patient will be sent to SNF on DVT prophylaxis with Lovenox which the floor nurse contacted patient's rehab facility and updating this will be recommended to be on for 35 days for blood clot prevention. Will follow-up with the patient in 2 weeks. Angel David, DO Orthopedic surgery
[2024-12-26 16:24] VITALS: BP 111/62; PULSE 81; RESP 16; TEMP 36.7; O2SAT 95
== END 2024-12-26 15:15 | disposition skilled nursing facility (03) | DRG 481 ==
LOC: ER 03:16 → ER IP 05:12 → MEDSURG 13:31
PROVIDERS: Student in an Organized Health Care Education/Training Program; Admitting Provider Internal Medicine; Emergency Provider Student in an Organized Health Care Education/Training Program; PCP Family Medicine; Visit Provider Student in an Organized Health Care Education/Training Program
PROC: 0QS806Z Reposition Right Femoral Shaft with Intramedullary Internal Fixation Device, Open Approach (ICD-10-PCS; principal; 2024-12-24 18:35)
DX: S72.341A Displaced spiral fracture of shaft of right femur, initial encounter for closed fracture (principal); M97.11XA Periprosthetic fracture around internal prosthetic right knee joint, initial encounter; F03.90 Unspecified dementia, unspecified severity, without behavioral disturbance, psychotic disturbance, mood disturbance, and anxiety; M06.9 Rheumatoid arthritis, unspecified; W19.XXXA Unspecified fall, initial encounter; Y92.129 Unspecified place in nursing home as the place of occurrence of the external cause
CPT/HCPCS: 36415; 51702; 70450; 71045; 72170; 73552; 73700; 76000; 80053; 80061; 81001; 82550; 83036; 83735; 84100; 84145; 84443; 85025; 85610; 85730; 86850; 86900; 87426; 93005; 94664; 96372; 96374; 97110; 97162; 97167; 97530; 99285; C1713; J0131; J0690; J1100; J1644; J1650; J2270; J2371; J2405; J2704; J3010; J3480; J3490; J7030; J9999

== ENCOUNTER → 2025-01-07 09:56 | Outpatient (BNVA) | payer MEDICARE, SELFPAY | PROVIDERS: PCP Family Medicine; Visit Provider Physician Assistant | DX: S72.341D Displaced spiral fracture of shaft of right femur, subsequent encounter for closed fracture with routine healing (principal); X58.XXXD Exposure to other specified factors, subsequent encounter; Z98.890 Other specified postprocedural states | CPT/HCPCS: 73552; 99024 ==

== ENCOUNTER → 2025-01-21 10:32 | Outpatient (BNVA) | payer MEDICARE, SELFPAY | PROVIDERS: PCP Family Medicine; Visit Provider Physician Assistant | DX: Z98.890 Other specified postprocedural states (principal); S72.341D Displaced spiral fracture of shaft of right femur, subsequent encounter for closed fracture with routine healing; X58.XXXD Exposure to other specified factors, subsequent encounter | CPT/HCPCS: 73552; 99024 ==

== ENCOUNTER → 2025-02-11 11:14 | Outpatient (BNVA) | payer MEDICARE, SELFPAY | PROVIDERS: PCP Family Medicine; Visit Provider Physician Assistant | DX: Z98.890 Other specified postprocedural states (principal); S72.341D Displaced spiral fracture of shaft of right femur, subsequent encounter for closed fracture with routine healing; X58.XXXD Exposure to other specified factors, subsequent encounter | CPT/HCPCS: 73552; 99213 ==

== ENCOUNTER → 2025-03-11 11:11 | Outpatient (BNVA) | payer MEDICARE, SELFPAY | PROVIDERS: PCP Family Medicine; Visit Provider Physician Assistant | DX: Z98.890 Other specified postprocedural states (principal); Z87.81 Personal history of (healed) traumatic fracture | CPT/HCPCS: 73552; 99024; 99213 ==